=== PATIENT | male | born 1980 | race Caucasian/White ===

== ENCOUNTER 2018-01-11 04:09 | Emergency (ER) | payer MEDICAID ==
[2018-01-11] MEDS ORDERED: METAL LOCK LOOP XX (05:59)
== END 2018-01-11 06:20 | disposition home or self-care (01) ==
LOC: M ED 04:09
DX: K13.70 Unspecified lesions of oral mucosa (principal); J45.909 Unspecified asthma, uncomplicated; F17.200 Nicotine dependence, unspecified, uncomplicated; Z88.0 Allergy status to penicillin; Z79.51 Long term (current) use of inhaled steroids
CPT/HCPCS: 99282

== ENCOUNTER → 2018-12-03 | Outpatient (CLI) | payer MEDICAID ==
[~2018-12-03] MED LIST: ADV500INH INH; CLIN75REC PO; COMBAER6 INH; COUM1TAB18; IPRA0.00 NEB; MULTIVIT; PERC5TAB8; TGTSUS3 PO; XOPE0.632
--- NOTE | 2018-12-03 16:14 | REP ---
PA and lateral chest: Comparison is 07/13/2015. There is marked hyperinflation, unchanged. There is a new focal density inferiorly in the left lung adjacent to the cardiac apex. This could represent an infiltrate or a mass. Follow-up to complete resolution is recommended. The lung lau otherwise clear. Cardiac size normal. The itzel, mediastinum, skeletal structures are unchanged. Impression: New focal density inferiorly in the left lung, infiltrate versus mass. Follow-up to complete resolution is recommended. Electronically Signed by Vinod Montoya MD 12/03/2018 04:06 P
== END ==
LOC: M RAD 15:53
PROVIDERS: ATTEND Physician Assistant Medical
DX: J20.9 Acute bronchitis, unspecified (principal)

== ENCOUNTER → 2020-10-28 | Outpatient (CLI) | payer MEDICAID ==
[~2020-10-28] MED LIST changes: +ACET-1439 PO; -TGTSUS3 PO
--- NOTE | 2020-10-28 13:49 | REP ---
INDICATION: ACUTE BRONCHITIS, UNSPECIFIED COMPARISON: 12/03/2018 TECHNIQUE: PA and lateral. FINDINGS: The mediastinum and cardiac silhouette are normal. The lung lau demonstrate chronic emphysematous changes without acute consolidation, effusion, or pneumothorax. The skeletal structures are intact and normal. IMPRESSION: No acute cardiopulmonary process. <Electronically signed by [place] Mustafa > 10/28/20 [id number]
== END ==
LOC: M RAD 13:24
PROVIDERS: ATTEND Physician Assistant Medical
DX: J20.9 Acute bronchitis, unspecified (principal); J44.0 Chronic obstructive pulmonary disease with (acute) lower respiratory infection

== ENCOUNTER → 2022-11-04 | Outpatient (CLI) | payer MEDICAID ==
[2022-11-04 10:57] LABS: ABG BASE EXCESS 1.4 (-2.0-2.0); ABG HCO3 28.2 MMOL/L (22.0-26.0); ABG O2 SATURATION 98.5 % (95.0-99.0); ABG PARTIAL PRESSURE CO2 52.8 mmHg (35.0-45.0); ABG PARTIAL PRESSURE O2 135.6 mmHg (75.0-100.0); ABG STANDARD HCO3 25.8 MMOL/L. (22.0-26.0); ABG TOTAL CO2 29.8 MMOL/L (22.0-29.0); ABG pH (ARTERIAL) 7.345 UNITS (7.350-7.450)
== END ==
LOC: M CARPUL 10:20
PROVIDERS: ATTEND Nurse Practitioner Adult Health
DX: J44.9 Chronic obstructive pulmonary disease, unspecified (principal)

== ENCOUNTER → 2023-04-10 | Outpatient (CLI) | payer MEDICAID | LOC: M WUC 12:59 | PROVIDERS: ATTEND Nurse Practitioner Adult Health | DX: J18.0 Bronchopneumonia, unspecified organism (principal); I51.7 Cardiomegaly; I70.0 Atherosclerosis of aorta; J98.4 Other disorders of lung ==

== ENCOUNTER → 2023-05-09 | Outpatient (CLI) | payer MEDICAID ==
[2023-05-09 10:23] LABS: ABG BASE EXCESS 12.4 (-2.0-2.0); ABG HCO3 41.7 MMOL/L (22.0-26.0); ABG O2 SATURATION 97.6 % (95.0-99.0); ABG PARTIAL PRESSURE O2 98.3 mmHg (75.0-100.0); ABG SITE NOT GIVEN; ABG STANDARD HCO3 36.2 MMOL/L. (22.0-26.0); ABG TOTAL CO2 44.2 MMOL/L (22.0-29.0); ABG pH (ARTERIAL) 7.332 UNITS (7.350-7.450)
[2023-05-09 10:24] LABS: ABG PARTIAL PRESSURE CO2 80.6 mmHg (35.0-45.0)
== END ==
LOC: M LAB 09:47
PROVIDERS: ATTEND Nurse Practitioner
DX: J44.9 Chronic obstructive pulmonary disease, unspecified (principal)

== ENCOUNTER 2024-02-12 06:22 | Inpatient (IN) | payer MEDICAID, OTHER ==
[~2024-02-12] VITALS: Ht 172.7 cm; Wt 47.5 kg
[2024-02-12 07:01] LABS: BASO % 0.2 % (0.0-1.0); EOS # 0.1 10^3/uL (0.0-0.5); HEMATOCRIT 41.1 % (42.0-52.0); HEMOGLOBIN 11.9 g/dl (13.5-17.5); LYMPH # 0.5 10^3/uL (1.5-5.0); LYMPH % 5.1 % (24.0-44.0); MEAN CORPUSCULAR HEMOGLOBIN 27.9 pg (27.0-33.0); MEAN CORPUSCULAR VOLUME 96.3 fl (80.0-96.0); MONO # 0.7 10^3/uL (0.0-0.8); MONO % 6.3 % (2.0-8.0); NEUTROPHILS # 9.1 10^3/uL (1.5-8.5); NEUTROPHILS % 87.1 % (36.0-66.0); PLATELET COUNT, AUTOMATED 171 10^3/uL (150-450); RED BLOOD COUNT 4.27 10^6/uL (4.30-6.10); WHITE BLOOD COUNT 10.4 10^3/uL (4.0-10.0)
[2024-02-12 07:05] LABS: ABG BASE EXCESS 16.1 (-2.0-2.0); ABG HCO3 47.7 MMOL/L (22.0-26.0); ABG PARTIAL PRESSURE O2 100.4 mmHg (75.0-100.0); ABG STANDARD HCO3 40.1 MMOL/L. (22.0-26.0); ABG TOTAL CO2 50.9 MMOL/L (22.0-29.0); ABG pH (ARTERIAL) 7.279 UNITS (7.350-7.450)
[2024-02-12 07:25] LABS: CK-MB VALUE MASS 6.6 NG/ML (<3.6)
[2024-02-12 07:30] LABS: ALBUMIN 3.3 G/DL (3.2-5.2); ALKALINE PHOSPHATASE 93 U/L (40-129); ALT/SGPT 15 U/L (7.0-40); AST/SGOT 11 U/L (<34); BILIRUBIN,DIRECT < 0.1 MG/DL (<0.4); BILIRUBIN,TOTAL 0.3 MG/DL (0.3-1.2); BLOOD UREA NITROGEN 14 MG/DL (9-23); CALCIUM LEVEL 9.8 MG/DL (8.5-10.1); CARBON DIOXIDE LEVEL > 40.0 MMOL/L (20-31); CHLORIDE LEVEL 91 MMOL/L (98-107); CPK CREATINE PHOSPHOKINASE 80 U/L (46-171); CREATININE FOR GFR 0.56 MG/DL (0.70-1.30); GLOMERULAR FILTRATION RATE > 60.0 (>60); GLUCOSE, FASTING 94 MG/DL (60-100); MB/CK RELATIVE INDEX 8.25 (< OR =4); POTASSIUM SERUM 5.1 MMOL/L (3.5-5.1); SODIUM LEVEL 138 MMOL/L (136-145)
[2024-02-12 08:09] LABS: CK-MB VALUE MASS 7.8 NG/ML (<3.6)
[2024-02-12] MEDS: IPRATROPIUM 0.5MG/ALBUTEROL 2.5MG INH SOL UD 3ML (DUONEB) NEB SCH ×3 (08:09→20:05)
[2024-02-12 08:14] LABS: CPK CREATINE PHOSPHOKINASE 73 U/L (46-171); MB/CK RELATIVE INDEX 10.68 (< OR =4)
[2024-02-12] MEDS: methylPREDNISolone 125MG 2ML VIAL IV ONE (08:45)
[2024-02-12] MEDS: LevoFLOXacin IV 750 MG in IV 1 EA IV ONE (08:45)
[2024-02-12] MEDS: FLUoxetine 20MG CAP PO ONE (08:52)
[2024-02-12] MEDS: busPIRone 10 MG TAB PO ONE (08:52)
[2024-02-12] MEDS: ENOXAPARIN 40MG/0.4ML SYRINGE (J1650 PER 10MG) SC SCH (09:00)
[2024-02-12] MEDS ORDERED: FLUT1BLS6 INH (09:51)
[2024-02-12] MEDS ORDERED: ALBU2.5V10 INH (09:51)
[2024-02-12] MEDS ORDERED: COMBAER6 INH (09:51)
[2024-02-12] MEDS ORDERED: IBUP-1022 PO (09:51)
[2024-02-12] MEDS ORDERED: BUSP10TA PO (09:51)
[2024-02-12] MEDS ORDERED: FLUO-96 PO (09:51)
[2024-02-12] MEDS ORDERED: HOME MED LIST COMPLETE! XX SCH (09:55)
[2024-02-12 10:22] LABS: ABG BASE EXCESS 18.1 (-2.0-2.0); ABG HCO3 48.4 MMOL/L (22.0-26.0); ABG O2 SATURATION 93.2 % (95.0-99.0); ABG PARTIAL PRESSURE O2 65.5 mmHg (75.0-100.0); ABG STANDARD HCO3 42.1 MMOL/L. (22.0-26.0); ABG TOTAL CO2 51.2 MMOL/L (22.0-29.0)
[2024-02-12 10:23] LABS: ABG PARTIAL PRESSURE CO2 91.8 mmHg (35.0-45.0)
[2024-02-12] MEDS: IPRATROPIUM 0.5MG/ALBUTEROL 2.5MG INH SOL UD 3ML (DUONEB) NEB ONE (11:22)
[2024-02-12] MEDS ORDERED: ISOVUE-370 76% 100ML VIAL As Ordered ONE (12:42)
[2024-02-12] MEDS: LR 1,000 ML IV ONE (13:00)
[2024-02-12 14:00] VITALS: BP 143/91; TEMP 98.1; O2SAT 91
[2024-02-12] MEDS: methylPREDNISolone 40MG 1ML VIAL IV ONE (15:08)
[2024-02-12] MEDS: cefTRIAXone SOD 2 GM in DEXTROSE 5% (D5W) ADV/MINI-BAG 50 ML IV SCH (15:09)
[2024-02-12 16:00] VITALS: BP 136/86; TEMP 97.9; O2SAT 93
[2024-02-12 16:07] VITALS: BP 132/83; TEMP 98; O2SAT 93
[2024-02-12 16:14] LABS: IMMUNOGLOBULIN A 299.4 MG/DL (40-350); IMMUNOGLOBULIN G 1316 MG/DL (650-1600)
[2024-02-12 16:21] LABS: PROCALCITONIN 0.06 ng/ml
[2024-02-12] MEDS: ALPRAZolam 0.25 MG TAB PO PRN (17:30)
[2024-02-12 19:34] VITALS: BP 150/82; TEMP 97.3; O2SAT 90
[2024-02-12] MEDS: FORMOTEROL FUMARATE 20 MCG/2 ML INHALATION SOLUTION (PERFOROMIST) INH SCH (20:05)
[2024-02-12] MEDS: BUDESONIDE 0.5 MG/2 ML INHALATION SUSPENSION NEB SCH (20:05)
[2024-02-12] MEDS: DOXYCYCLINE HYCLATE 100MG TABLET PO SCH (21:10)
[2024-02-12] MEDS: busPIRone 10 MG TAB PO SCH (21:10)
[2024-02-12 23:44] VITALS: BP 142/89; TEMP 97.3; O2SAT 88
[2024-02-13] VITALS (20 sets, daily range): BP systolic 85–148; BP diastolic 50–90; TEMP 97.6–99.1; O2SAT 87–99
[2024-02-13] MEDS ORDERED: VANCOMYCIN 1,000 MG/200 ML IV BAG *LOAD IV ONE (04:00)
[2024-02-13 04:20] LABS: HEMATOCRIT 40.1 % (42.0-52.0); HEMOGLOBIN 11.8 g/dl (13.5-17.5); MEAN CORPUSCULAR HEMOGLOBIN 27.5 pg (27.0-33.0); MEAN CORPUSCULAR HGB CONC 29.4 g/dl (32.0-36.5); MEAN CORPUSCULAR VOLUME 93.5 fl (80.0-96.0); PLATELET COUNT, AUTOMATED 205 10^3/uL (150-450); RED BLOOD COUNT 4.29 10^6/uL (4.30-6.10); WHITE BLOOD COUNT 8.2 10^3/uL (4.0-10.0)
[2024-02-13 04:53] LABS: BLOOD UREA NITROGEN 14 MG/DL (9-23); CARBON DIOXIDE LEVEL > 40.0 MMOL/L (20-31); CHLORIDE LEVEL 90 MMOL/L (98-107); CREATININE FOR GFR 0.44 MG/DL (0.70-1.30); GLOMERULAR FILTRATION RATE > 60.0 (>60); GLUCOSE, FASTING 96 MG/DL (60-100); POTASSIUM SERUM 4.7 MMOL/L (3.5-5.1); SODIUM LEVEL 137 MMOL/L (136-145)
[2024-02-13 05:13] LABS: ABG BASE EXCESS 20.5 (-2.0-2.0); ABG HCO3 53.3 MMOL/L (22.0-26.0); ABG O2 SATURATION 99.5 % (95.0-99.0); ABG PARTIAL PRESSURE O2 196.1 mmHg (75.0-100.0); ABG pH (ARTERIAL) 7.258 UNITS (7.350-7.450)
[2024-02-13] MEDS: LORazepam 2 MG/ML 1ML VIAL IV STA (05:37)
[2024-02-13] MEDS ORDERED: VANCOMYCIN/WATER FOR INJ 1,000 MG in IV 1 EA IV ONE (07:15)
[2024-02-13 07:28] LABS: ABG BASE EXCESS 17.3 (-2.0-2.0); ABG HCO3 50.9 MMOL/L (22.0-26.0); ABG O2 SATURATION 99.6 % (95.0-99.0); ABG PARTIAL PRESSURE O2 262.8 mmHg (75.0-100.0); ABG STANDARD HCO3 41.5 MMOL/L. (22.0-26.0)
[2024-02-13 07:31] LABS: ABG PARTIAL PRESSURE CO2 130.6 mmHg (35.0-45.0); ABG pH (ARTERIAL) 7.209 UNITS (7.350-7.450)
[2024-02-13] MEDS: methylPREDNISolone 40MG 1ML VIAL IV SCH (08:20)
[2024-02-13] MEDS: DOXYCYCLINE HYCLATE 100 MG in DEXTROSE 5% (D5W) MINI-BAG PLU 100 ML IV SCH (09:19)
[2024-02-13 09:51] LABS: ABG HCO3 52.2 MMOL/L (22.0-26.0); ABG O2 SATURATION 89.1 % (95.0-99.0); ABG PARTIAL PRESSURE O2 59.3 mmHg (75.0-100.0)
[2024-02-13 09:54] LABS: ABG pH (ARTERIAL) 7.244 UNITS (7.350-7.450)
[2024-02-13 09:55] LABS: ABG PARTIAL PRESSURE CO2 123.5 mmHg (35.0-45.0)
[2024-02-13] MEDS ORDERED: GLUCOSE 4 GM CHEW PO PRN (11:00)
[2024-02-13] MEDS ORDERED: GLUCAGON INJ 1MG VIAL SC PRN (11:00)
[2024-02-13] MEDS ORDERED: DEXTROSE 50% 50ML SYRINGE IV PRN (11:00)
[2024-02-13] MEDS: ceFAZolin SOD 2 GM in IV 1 EA IV SCH (12:55)
[2024-02-13] MEDS: PROLASTIN C IV SCH (13:41)
[2024-02-13] MEDS: ONDANSETRON 4MG 2ML VIAL IV PRN (13:45)
[2024-02-13] MEDS: dexmedeTOMidine 200 MCG in IV 1 EA IV SCH (14:10)
[2024-02-13 14:20] LABS: ABG BASE EXCESS 16.3 (-2.0-2.0); ABG HCO3 50.9 MMOL/L (22.0-26.0); ABG PARTIAL PRESSURE O2 74.1 mmHg (75.0-100.0); ABG STANDARD HCO3 40.2 MMOL/L. (22.0-26.0); ABG TOTAL CO2 55.3 MMOL/L (22.0-29.0)
[2024-02-13 14:23] LABS: ABG PARTIAL PRESSURE CO2 142.7 mmHg (35.0-45.0)
[2024-02-13] MEDS: BUDESONIDE 0.5 MG/2 ML INHALATION SUSPENSION NEB SCH (14:58)
[2024-02-13 18:18] LABS: ABG BASE EXCESS 16.7 (-2.0-2.0); ABG HCO3 50.4 MMOL/L (22.0-26.0); ABG O2 SATURATION 91.2 % (95.0-99.0); ABG PARTIAL PRESSURE O2 68.8 mmHg (75.0-100.0); ABG STANDARD HCO3 40.5 MMOL/L. (22.0-26.0); ABG TOTAL CO2 54.6 MMOL/L (22.0-29.0)
[2024-02-13 18:19] LABS: ABG PARTIAL PRESSURE CO2 136.6 mmHg (35.0-45.0); ABG pH (ARTERIAL) 7.185 UNITS (7.350-7.450)
[2024-02-13 23:45] LABS: ABG HCO3 49.5 MMOL/L (22.0-26.0); ABG O2 SATURATION 97.7 % (95.0-99.0); ABG PARTIAL PRESSURE O2 111.5 mmHg (75.0-100.0); ABG TOTAL CO2 53.3 MMOL/L (22.0-29.0)
[2024-02-13 23:46] LABS: ABG pH (ARTERIAL) 7.226 UNITS (7.350-7.450)
[2024-02-13 23:47] LABS: ABG PARTIAL PRESSURE CO2 122.1 mmHg (35.0-45.0)
[2024-02-14] VITALS (38 sets, daily range): BP systolic 92–125; BP diastolic 53–75; TEMP 98–99.7; O2SAT 84–100
[2024-02-14 04:32] LABS: HEMATOCRIT 38.2 % (42.0-52.0); HEMOGLOBIN 11.1 g/dl (13.5-17.5); LYMPH # 0.5 10^3/uL (1.5-5.0); LYMPH % 6.3 % (24.0-44.0); MEAN CORPUSCULAR HGB CONC 29.1 g/dl (32.0-36.5); MEAN CORPUSCULAR VOLUME 96.2 fl (80.0-96.0); MONO # 0.3 10^3/uL (0.0-0.8); MONO % 3.8 % (2.0-8.0); NEUTROPHILS # 6.6 10^3/uL (1.5-8.5); NEUTROPHILS % 89.6 % (36.0-66.0); PLATELET COUNT, AUTOMATED 188 10^3/uL (150-450); RED BLOOD COUNT 3.97 10^6/uL (4.30-6.10); WHITE BLOOD COUNT 7.4 10^3/uL (4.0-10.0)
[2024-02-14 04:58] LABS: CK-MB VALUE MASS 4.9 NG/ML (<3.6); MAGNESIUM LEVEL 2.3 MG/DL (1.8-2.4); MB/CK RELATIVE INDEX 7.2 (< OR =4); PHOSPHORUS LEVEL 4.6 MG/DL (2.5-4.9)
[2024-02-14 05:10] LABS: PROCALCITONIN 0.07 ng/ml
[2024-02-14 05:39] LABS: ABG pH (ARTERIAL) 7.277 UNITS (7.350-7.450)
[2024-02-14 05:41] LABS: ABG BASE EXCESS 19.4 (-2.0-2.0); ABG HCO3 51.1 MMOL/L (22.0-26.0); ABG PARTIAL PRESSURE O2 147.5 mmHg (75.0-100.0); ABG STANDARD HCO3 43.6 MMOL/L. (22.0-26.0); ABG TOTAL CO2 54.5 MMOL/L (22.0-29.0)
[2024-02-14] MEDS ORDERED: VANCOMYCIN HCL 750 MG, VIAL MATE ADAPTER 1 EACH in NS 250 ML IV SCH (07:55)
[2024-02-14] MEDS: methylPREDNISolone 40MG 1ML VIAL IV SCH (08:53)
[2024-02-14] MEDS: FLUoxetine 20MG CAP PO SCH (09:16)
[2024-02-14] MEDS: VANCOMYCIN 1,000 MG/200 ML IV BAG *LOAD IV ONE (10:11)
[2024-02-14] MEDS ORDERED: VANCOMYCIN 1,250 MG/250 ML IV BAG IV SCH (18:00)
[2024-02-14] MEDS: VANCOMYCIN HCL 750 MG, VIAL MATE ADAPTER 1 EACH in NS 250 ML IV SCH (18:38)
[2024-02-15] VITALS (33 sets, daily range): BP systolic 95–146; BP diastolic 53–90; TEMP 97.3–98.7; O2SAT 75–100
[2024-02-15 05:27] LABS: HEMATOCRIT 36.2 % (42.0-52.0); HEMOGLOBIN 10.5 g/dl (13.5-17.5); LYMPH # 0.6 10^3/uL (1.5-5.0); MEAN CORPUSCULAR HEMOGLOBIN 27.9 pg (27.0-33.0); MONO # 0.3 10^3/uL (0.0-0.8); MONO % 4.3 % (2.0-8.0); NEUTROPHILS # 6.9 10^3/uL (1.5-8.5); NEUTROPHILS % 87.6 % (36.0-66.0); PLATELET COUNT, AUTOMATED 163 10^3/uL (150-450); RED BLOOD COUNT 3.77 10^6/uL (4.30-6.10); WHITE BLOOD COUNT 7.9 10^3/uL (4.0-10.0)
[2024-02-15 05:47] LABS: ABG BASE EXCESS 18.5 (-2.0-2.0); ABG HCO3 48.3 MMOL/L (22.0-26.0); ABG O2 SATURATION 98.4 % (95.0-99.0); ABG PARTIAL PRESSURE O2 128.6 mmHg (75.0-100.0); ABG STANDARD HCO3 42.6 MMOL/L. (22.0-26.0); ABG TOTAL CO2 51.1 MMOL/L (22.0-29.0); ABG pH (ARTERIAL) 7.339 UNITS (7.350-7.450)
[2024-02-15 05:48] LABS: ABG PARTIAL PRESSURE CO2 91.8 mmHg (35.0-45.0)
[2024-02-15 06:01] LABS: ALBUMIN 3.1 G/DL (3.2-5.2); ALKALINE PHOSPHATASE 69 U/L (40-129); ALT/SGPT 12 U/L (7.0-40); AST/SGOT 14 U/L (<34); BILIRUBIN,TOTAL 0.3 MG/DL (0.3-1.2); BLOOD UREA NITROGEN 26 MG/DL (9-23); CALCIUM LEVEL 9.5 MG/DL (8.5-10.1); CARBON DIOXIDE LEVEL > 40.0 MMOL/L (20-31); CHLORIDE LEVEL 89 MMOL/L (98-107); CREATININE FOR GFR 0.53 MG/DL (0.70-1.30); GLOMERULAR FILTRATION RATE > 60.0 (>60); GLUCOSE, FASTING 107 MG/DL (60-100); MAGNESIUM LEVEL 2.4 MG/DL (1.8-2.4); PHOSPHORUS LEVEL 3.7 MG/DL (2.5-4.9); POTASSIUM SERUM 5.2 MMOL/L (3.5-5.1); SODIUM LEVEL 137 MMOL/L (136-145); TOTAL PROTEIN 6.4 G/DL (5.7-8.2)
[2024-02-15] MEDS: SOD POLYSTYRENE SULFONATE SUSP 15GM 60ML UD PO ONE (06:35)
[2024-02-15] MEDS: GLYCOPYRROLATE INJ 0.2 MG/ML 2 ML VIAL NEB SCH (11:20)
[2024-02-15] MEDS: ALPRAZolam 0.25 MG TAB PO PRN (13:39)
[2024-02-15] MEDS: busPIRone 10 MG TAB PO SCH (14:53)
[2024-02-15 15:12] LABS: VENOUS BASE EXCESS 15.4 (-2.0-2.0); VENOUS HCO3 44.2 MMOL/L (23.0-27.0); VENOUS O2 SATURATION 99.2 % (60.0-80.0); VENOUS PARTIAL PRESSURE CO2 77.8 mmHg (38.0-50.0); VENOUS PARTIAL PRESSURE O2 162.3 mmHg (30.0-50.0); VENOUS PH 7.372 UNITS (7.330-7.430); VENOUS STANDARD HCO3 39.3 MMOL/L; VENOUS TOTAL CO2 46.6 MMOL/L (24.0-28.0)
[2024-02-15] MEDS: IPRATROPIUM 0.5MG/ALBUTEROL 2.5MG INH SOL UD 3ML (DUONEB) NEB SCH (15:14)
[2024-02-15 17:11] LABS: VENOUS BASE EXCESS 18.4 (-2.0-2.0); VENOUS HCO3 48.8 MMOL/L (23.0-27.0); VENOUS O2 SATURATION 98.9 % (60.0-80.0); VENOUS PARTIAL PRESSURE CO2 94.5 mmHg (38.0-50.0); VENOUS PARTIAL PRESSURE O2 156.6 mmHg (30.0-50.0); VENOUS PH 7.331 UNITS (7.330-7.430); VENOUS STANDARD HCO3 42.6 MMOL/L; VENOUS TOTAL CO2 51.7 MMOL/L (24.0-28.0)
[2024-02-15] MEDS: CALCIUM GLUCONATE 1,000 MG in DEXTROSE 5% (D5W) MINI-BAG PLU 100 ML IV ONE (17:57)
[2024-02-15 18:34] LABS: BLOOD UREA NITROGEN 24 MG/DL (9-23); CARBON DIOXIDE LEVEL > 40.0 MMOL/L (20-31); CHLORIDE LEVEL 91 MMOL/L (98-107); CREATININE FOR GFR 0.49 MG/DL (0.70-1.30); GLOMERULAR FILTRATION RATE > 60.0 (>60); GLUCOSE, FASTING 205 MG/DL (60-100); POTASSIUM SERUM 4.5 MMOL/L (3.5-5.1); SODIUM LEVEL 137 MMOL/L (136-145)
[2024-02-15] MEDS: VANCOMYCIN 1,000MG/200 ML IV BAG IV SCH (18:46)
[2024-02-16] VITALS (17 sets, daily range): BP systolic 105–147; BP diastolic 63–80; TEMP 97–99.6; O2SAT 87–99
[2024-02-16 00:31] LABS: VENOUS BASE EXCESS 16.7 (-2.0-2.0); VENOUS HCO3 48.5 MMOL/L (23.0-27.0); VENOUS O2 SATURATION 95.4 % (60.0-80.0); VENOUS PARTIAL PRESSURE CO2 111.6 mmHg (38.0-50.0); VENOUS PH 7.256 UNITS (7.330-7.430); VENOUS STANDARD HCO3 40.6 MMOL/L; VENOUS TOTAL CO2 51.9 MMOL/L (24.0-28.0)
[2024-02-16 05:32] LABS: VENOUS HCO3 46.6 MMOL/L (23.0-27.0); VENOUS O2 SATURATION 79.3 % (60.0-80.0); VENOUS PARTIAL PRESSURE CO2 109.3 mmHg (38.0-50.0); VENOUS PARTIAL PRESSURE O2 48.3 mmHg (30.0-50.0); VENOUS PH 7.248 UNITS (7.330-7.430); VENOUS STANDARD HCO3 38.4 MMOL/L
[2024-02-16] MEDS: FLUoxetine 20MG CAP PO SCH (06:05)
[2024-02-16 06:13] LABS: BLOOD UREA NITROGEN 22 MG/DL (9-23); CALCIUM LEVEL 9.1 MG/DL (8.5-10.1); CARBON DIOXIDE LEVEL > 40.0 MMOL/L (20-31); CHLORIDE LEVEL 93 MMOL/L (98-107); CREATININE FOR GFR 0.57 MG/DL (0.70-1.30); GLOMERULAR FILTRATION RATE > 60.0 (>60); GLUCOSE, FASTING 139 MG/DL (60-100); PHOSPHORUS LEVEL 3.6 MG/DL (2.5-4.9); POTASSIUM SERUM 4.8 MMOL/L (3.5-5.1); SODIUM LEVEL 139 MMOL/L (136-145)
[2024-02-16] MEDS: ceFAZolin SOD 2 GM in IV 1 EA IV SCH (12:51)
[2024-02-16 18:07] LABS: FUNGITELL INTERPRETATION NEGATIVE (NEGATIVE); FUNGITELL, SERUM < 31 pg/mL (<60)
[2024-02-16] MEDS: DOXYCYCLINE HYCLATE 100MG TABLET PO SCH (20:41)
[2024-02-16] MEDS: ALPRAZolam 0.25 MG TAB PO PRN (22:29)
[2024-02-17] VITALS (11 sets, daily range): BP systolic 137–165; BP diastolic 77–97; TEMP 98.3–99.8; O2SAT 92–97
[2024-02-17 05:10] LABS: BLOOD UREA NITROGEN 16 MG/DL (9-23); CARBON DIOXIDE LEVEL > 40.0 MMOL/L (20-31); CHLORIDE LEVEL 93 MMOL/L (98-107); GLOMERULAR FILTRATION RATE > 60.0 (>60); GLUCOSE, FASTING 109 MG/DL (60-100); PHOSPHORUS LEVEL 4.1 MG/DL (2.5-4.9); SODIUM LEVEL 139 MMOL/L (136-145)
[2024-02-17 06:06] LABS: ABG BASE EXCESS 18.5 (-2.0-2.0); ABG HCO3 49.4 MMOL/L (22.0-26.0); ABG O2 SATURATION 97.4 % (95.0-99.0); ABG PARTIAL PRESSURE O2 103.8 mmHg (75.0-100.0); ABG STANDARD HCO3 42.7 MMOL/L. (22.0-26.0); ABG TOTAL CO2 52.4 MMOL/L (22.0-29.0); ABG pH (ARTERIAL) 7.309 UNITS (7.350-7.450)
[2024-02-17 06:10] LABS: ABG PARTIAL PRESSURE CO2 100.5 mmHg (35.0-45.0)
[2024-02-18] VITALS (16 sets, daily range): BP systolic 125–169; BP diastolic 79–93; TEMP 98.1–98.9; O2SAT 89–96
[2024-02-18 05:03] LABS: BLOOD UREA NITROGEN 16 MG/DL (9-23); CALCIUM LEVEL 9.8 MG/DL (8.5-10.1); CARBON DIOXIDE LEVEL > 40.0 MMOL/L (20-31); CHLORIDE LEVEL 92 MMOL/L (98-107); CREATININE FOR GFR 0.49 MG/DL (0.70-1.30); GLOMERULAR FILTRATION RATE > 60.0 (>60); GLUCOSE, FASTING 94 MG/DL (60-100); PHOSPHORUS LEVEL 3.7 MG/DL (2.5-4.9); POTASSIUM SERUM 4.7 MMOL/L (3.5-5.1); SODIUM LEVEL 139 MMOL/L (136-145)
[2024-02-18] MEDS: methylPREDNISolone 40MG 1ML VIAL IV SCH (08:59)
[2024-02-18 13:06] LABS: C REACTIVE PROTEIN QUANTITATIV < 0.50 MG/DL (<1.0)
[2024-02-19] VITALS (46 sets, daily range): BP systolic 135–163; BP diastolic 78–91; TEMP 98–99.4; O2SAT 56–100
[2024-02-19] MEDS: IPRATROPIUM 0.5MG/ALBUTEROL 2.5MG INH SOL UD 3ML (DUONEB) NEB PRN (05:46)
[2024-02-19 07:45] LABS: EOS # 0.3 10^3/uL (0.0-0.5); EOS % 3.1 % (0.0-3.0); HEMATOCRIT 39.8 % (42.0-52.0); HEMOGLOBIN 11.7 g/dl (13.5-17.5); LYMPH # 1.1 10^3/uL (1.5-5.0); MEAN CORPUSCULAR HEMOGLOBIN 27.5 pg (27.0-33.0); MEAN CORPUSCULAR HGB CONC 29.4 g/dl (32.0-36.5); MEAN CORPUSCULAR VOLUME 93.6 fl (80.0-96.0); MONO # 0.7 10^3/uL (0.0-0.8); MONO % 7.3 % (2.0-8.0); NEUTROPHILS % 78.1 % (36.0-66.0); PLATELET COUNT, AUTOMATED 210 10^3/uL (150-450); RED BLOOD COUNT 4.25 10^6/uL (4.30-6.10); WHITE BLOOD COUNT 10.2 10^3/uL (4.0-10.0)
[2024-02-19 08:20] LABS: BLOOD UREA NITROGEN 15 MG/DL (9-23); CALCIUM LEVEL 9.9 MG/DL (8.5-10.1); CARBON DIOXIDE LEVEL > 40.0 MMOL/L (20-31); CHLORIDE LEVEL 92 MMOL/L (98-107); CREATININE FOR GFR 0.43 MG/DL (0.70-1.30); GLOMERULAR FILTRATION RATE > 60.0 (>60); GLUCOSE, FASTING 96 MG/DL (60-100); MAGNESIUM LEVEL 2.2 MG/DL (1.8-2.4); POTASSIUM SERUM 5.1 MMOL/L (3.5-5.1); SODIUM LEVEL 138 MMOL/L (136-145)
[2024-02-19] MEDS: predniSONE 20 MG TAB PO SCH (09:46)
[2024-02-19] MEDS: valACYclovir HCL 500 MG TAB PO SCH (23:29)
[2024-02-20] VITALS (35 sets, daily range): BP systolic 115–149; BP diastolic 65–82; TEMP 98.2–100.2; O2SAT 83–98
[2024-02-20 06:20] LABS: BASO % 0.2 % (0.0-1.0); EOS # 0.2 10^3/uL (0.0-0.5); EOS % 1.4 % (0.0-3.0); HEMATOCRIT 42.5 % (42.0-52.0); HEMOGLOBIN 12.3 g/dl (13.5-17.5); LYMPH # 1.2 10^3/uL (1.5-5.0); LYMPH % 11.1 % (24.0-44.0); MEAN CORPUSCULAR HEMOGLOBIN 28.1 pg (27.0-33.0); MEAN CORPUSCULAR HGB CONC 28.9 g/dl (32.0-36.5); MONO # 0.8 10^3/uL (0.0-0.8); MONO % 7.6 % (2.0-8.0); NEUTROPHILS # 8.7 10^3/uL (1.5-8.5); NEUTROPHILS % 77.9 % (36.0-66.0); PLATELET COUNT, AUTOMATED 195 10^3/uL (150-450); RED BLOOD COUNT 4.38 10^6/uL (4.30-6.10); WHITE BLOOD COUNT 11.1 10^3/uL (4.0-10.0)
[2024-02-20 07:13] LABS: BLOOD UREA NITROGEN 17 MG/DL (9-23); CALCIUM LEVEL 9.5 MG/DL (8.5-10.1); CARBON DIOXIDE LEVEL > 40.0 MMOL/L (20-31); CHLORIDE LEVEL 93 MMOL/L (98-107); CREATININE FOR GFR 0.41 MG/DL (0.70-1.30); GLOMERULAR FILTRATION RATE > 60.0 (>60); GLUCOSE, FASTING 115 MG/DL (60-100); MAGNESIUM LEVEL 2.3 MG/DL (1.8-2.4); POTASSIUM SERUM 6.1 MMOL/L (3.5-5.1); SODIUM LEVEL 139 MMOL/L (136-145)
[2024-02-20 08:10] LABS: ABG BASE EXCESS 15.7 (-2.0-2.0); ABG HCO3 48.7 MMOL/L (22.0-26.0); ABG O2 SATURATION 89.9 % (95.0-99.0); ABG STANDARD HCO3 39.5 MMOL/L. (22.0-26.0); ABG TOTAL CO2 52.5 MMOL/L (22.0-29.0)
[2024-02-20 08:11] LABS: ABG PARTIAL PRESSURE CO2 122.3 mmHg (35.0-45.0); ABG pH (ARTERIAL) 7.218 UNITS (7.350-7.450)
[2024-02-20 09:10] LABS: ABG BASE EXCESS 17.8 (-2.0-2.0); ABG HCO3 48.6 MMOL/L (22.0-26.0); ABG O2 SATURATION 93.2 % (95.0-99.0); ABG PARTIAL PRESSURE O2 65.9 mmHg (75.0-100.0); ABG STANDARD HCO3 41.8 MMOL/L. (22.0-26.0); ABG TOTAL CO2 51.6 MMOL/L (22.0-29.0); ABG pH (ARTERIAL) 7.318 UNITS (7.350-7.450)
[2024-02-20] MEDS ORDERED: MAGIC MOUTHWASH 5ML ORAL SYRINGE SS PRN (10:45)
[2024-02-20] MEDS: CHLORASEPTIC SPRAY MT PRN (13:07)
[2024-02-21] VITALS (31 sets, daily range): BP systolic 126–151; BP diastolic 73–85; TEMP 98–98.8; O2SAT 91–96
[2024-02-21 06:48] LABS: BASO % 0.1 % (0.0-1.0); EOS # 0.2 10^3/uL (0.0-0.5); HEMATOCRIT 38.4 % (42.0-52.0); HEMOGLOBIN 11.1 g/dl (13.5-17.5); LYMPH # 1.3 10^3/uL (1.5-5.0); LYMPH % 12.8 % (24.0-44.0); MEAN CORPUSCULAR HEMOGLOBIN 27.7 pg (27.0-33.0); MEAN CORPUSCULAR HGB CONC 28.9 g/dl (32.0-36.5); MEAN CORPUSCULAR VOLUME 95.8 fl (80.0-96.0); MONO # 0.7 10^3/uL (0.0-0.8); MONO % 6.6 % (2.0-8.0); NEUTROPHILS % 77.9 % (36.0-66.0); PLATELET COUNT, AUTOMATED 190 10^3/uL (150-450); RED BLOOD COUNT 4.01 10^6/uL (4.30-6.10); WHITE BLOOD COUNT 10.2 10^3/uL (4.0-10.0)
[2024-02-21 07:20] LABS: BLOOD UREA NITROGEN 18 MG/DL (9-23); CALCIUM LEVEL 9.4 MG/DL (8.5-10.1); CARBON DIOXIDE LEVEL > 40.0 MMOL/L (20-31); CHLORIDE LEVEL 92 MMOL/L (98-107); CREATININE FOR GFR 0.48 MG/DL (0.70-1.30); GLOMERULAR FILTRATION RATE > 60.0 (>60); GLUCOSE, FASTING 98 MG/DL (60-100); MAGNESIUM LEVEL 2.2 MG/DL (1.8-2.4); POTASSIUM SERUM 4.9 MMOL/L (3.5-5.1); SODIUM LEVEL 138 MMOL/L (136-145)
[2024-02-22] VITALS (30 sets, daily range): BP systolic 125–154; BP diastolic 74–86; TEMP 97.9–98.6; O2SAT 83–97
[2024-02-22 05:57] LABS: BASO % 0.1 % (0.0-1.0); EOS # 0.3 10^3/uL (0.0-0.5); EOS % 2.9 % (0.0-3.0); HEMATOCRIT 37.5 % (42.0-52.0); HEMOGLOBIN 10.7 g/dl (13.5-17.5); LYMPH # 1.1 10^3/uL (1.5-5.0); LYMPH % 12.1 % (24.0-44.0); MEAN CORPUSCULAR HEMOGLOBIN 27.3 pg (27.0-33.0); MEAN CORPUSCULAR HGB CONC 28.5 g/dl (32.0-36.5); MEAN CORPUSCULAR VOLUME 95.7 fl (80.0-96.0); MONO # 0.6 10^3/uL (0.0-0.8); MONO % 6.5 % (2.0-8.0); NEUTROPHILS # 7.1 10^3/uL (1.5-8.5); PLATELET COUNT, AUTOMATED 188 10^3/uL (150-450); RED BLOOD COUNT 3.92 10^6/uL (4.30-6.10); WHITE BLOOD COUNT 9.1 10^3/uL (4.0-10.0)
[2024-02-22 06:37] LABS: BLOOD UREA NITROGEN 15 MG/DL (9-23); CALCIUM LEVEL 9.9 MG/DL (8.5-10.1); CARBON DIOXIDE LEVEL > 40.0 MMOL/L (20-31); CHLORIDE LEVEL 87 MMOL/L (98-107); CREATININE FOR GFR 0.45 MG/DL (0.70-1.30); GLOMERULAR FILTRATION RATE > 60.0 (>60); GLUCOSE, FASTING 84 MG/DL (60-100); MAGNESIUM LEVEL 2.3 MG/DL (1.8-2.4); POTASSIUM SERUM 4.7 MMOL/L (3.5-5.1); SODIUM LEVEL 136 MMOL/L (136-145)
[2024-02-22 08:24] LABS: ABG BASE EXCESS 17.2 (-2.0-2.0); ABG HCO3 51.1 MMOL/L (22.0-26.0); ABG O2 SATURATION 94.1 % (95.0-99.0); ABG PARTIAL PRESSURE O2 80.4 mmHg (75.0-100.0); ABG STANDARD HCO3 41.2 MMOL/L. (22.0-26.0); ABG TOTAL CO2 55.3 MMOL/L (22.0-29.0)
[2024-02-22 08:26] LABS: ABG PARTIAL PRESSURE CO2 137.7 mmHg (35.0-45.0); ABG pH (ARTERIAL) 7.187 UNITS (7.350-7.450)
[2024-02-22] MEDS: predniSONE 10MG TAB PO SCH (09:28)
[2024-02-22 10:47] LABS: ABG BASE EXCESS 15.8 (-2.0-2.0); ABG HCO3 48.8 MMOL/L (22.0-26.0); ABG O2 SATURATION 91.3 % (95.0-99.0); ABG PARTIAL PRESSURE O2 66.9 mmHg (75.0-100.0); ABG STANDARD HCO3 39.6 MMOL/L. (22.0-26.0); ABG TOTAL CO2 52.6 MMOL/L (22.0-29.0)
[2024-02-22 10:51] LABS: ABG PARTIAL PRESSURE CO2 124.8 mmHg (35.0-45.0)
[2024-02-23] VITALS (31 sets, daily range): BP systolic 136–143; BP diastolic 76–89; TEMP 97.6–99.2; O2SAT 84–98
[2024-02-23 07:35] LABS: BASO % 0.1 % (0.0-1.0); EOS # 0.2 10^3/uL (0.0-0.5); EOS % 1.9 % (0.0-3.0); HEMATOCRIT 37.9 % (42.0-52.0); HEMOGLOBIN 10.9 g/dl (13.5-17.5); LYMPH % 12.2 % (24.0-44.0); MEAN CORPUSCULAR HEMOGLOBIN 27.7 pg (27.0-33.0); MEAN CORPUSCULAR HGB CONC 28.8 g/dl (32.0-36.5); MEAN CORPUSCULAR VOLUME 96.2 fl (80.0-96.0); MONO # 0.5 10^3/uL (0.0-0.8); MONO % 6.1 % (2.0-8.0); NEUTROPHILS # 6.2 10^3/uL (1.5-8.5); NEUTROPHILS % 79.2 % (36.0-66.0); PLATELET COUNT, AUTOMATED 188 10^3/uL (150-450); RED BLOOD COUNT 3.94 10^6/uL (4.30-6.10); WHITE BLOOD COUNT 7.8 10^3/uL (4.0-10.0)
[2024-02-23 07:53] LABS: BLOOD UREA NITROGEN 15 MG/DL (9-23); CALCIUM LEVEL 9.4 MG/DL (8.5-10.1); CARBON DIOXIDE LEVEL > 40.0 MMOL/L (20-31); CHLORIDE LEVEL 87 MMOL/L (98-107); CREATININE FOR GFR 0.44 MG/DL (0.70-1.30); GLOMERULAR FILTRATION RATE > 60.0 (>60); GLUCOSE, FASTING 143 MG/DL (60-100); MAGNESIUM LEVEL 2.3 MG/DL (1.8-2.4); POTASSIUM SERUM 4.6 MMOL/L (3.5-5.1); SODIUM LEVEL 138 MMOL/L (136-145)
[2024-02-23 19:47] LABS: URINE STREP PNEUMONIAE ANTIGEN NOT DETECTED (NOT DETECT)
[2024-02-24] VITALS (29 sets, daily range): BP systolic 122–153; BP diastolic 64–84; TEMP 97.4–98.8; O2SAT 90–98
[2024-02-24 06:58] LABS: BASO % 0.1 % (0.0-1.0); EOS # 0.3 10^3/uL (0.0-0.5); EOS % 3.3 % (0.0-3.0); HEMATOCRIT 38.3 % (42.0-52.0); HEMOGLOBIN 11.1 g/dl (13.5-17.5); LYMPH # 1.5 10^3/uL (1.5-5.0); LYMPH % 15.5 % (24.0-44.0); MEAN CORPUSCULAR HEMOGLOBIN 27.3 pg (27.0-33.0); MEAN CORPUSCULAR VOLUME 94.3 fl (80.0-96.0); MONO # 0.6 10^3/uL (0.0-0.8); MONO % 6.2 % (2.0-8.0); NEUTROPHILS # 7.1 10^3/uL (1.5-8.5); NEUTROPHILS % 74.4 % (36.0-66.0); PLATELET COUNT, AUTOMATED 213 10^3/uL (150-450); RED BLOOD COUNT 4.06 10^6/uL (4.30-6.10); WHITE BLOOD COUNT 9.5 10^3/uL (4.0-10.0)
[2024-02-24 07:36] LABS: BLOOD UREA NITROGEN 15 MG/DL (9-23); CALCIUM LEVEL 9.4 MG/DL (8.5-10.1); CARBON DIOXIDE LEVEL > 40.0 MMOL/L (20-31); CHLORIDE LEVEL 90 MMOL/L (98-107); CREATININE FOR GFR 0.45 MG/DL (0.70-1.30); GLOMERULAR FILTRATION RATE > 60.0 (>60); GLUCOSE, FASTING 84 MG/DL (60-100); MAGNESIUM LEVEL 2.3 MG/DL (1.8-2.4); POTASSIUM SERUM 4.8 MMOL/L (3.5-5.1); SODIUM LEVEL 138 MMOL/L (136-145)
[2024-02-25] VITALS (30 sets, daily range): BP systolic 127–139; BP diastolic 75–83; TEMP 98–98.1; O2SAT 92–98
[2024-02-25 07:08] LABS: BASO % 0.3 % (0.0-1.0); EOS # 0.3 10^3/uL (0.0-0.5); EOS % 2.6 % (0.0-3.0); HEMATOCRIT 37.7 % (42.0-52.0); HEMOGLOBIN 10.9 g/dl (13.5-17.5); LYMPH # 1.3 10^3/uL (1.5-5.0); LYMPH % 13.2 % (24.0-44.0); MEAN CORPUSCULAR HEMOGLOBIN 27.5 pg (27.0-33.0); MEAN CORPUSCULAR HGB CONC 28.9 g/dl (32.0-36.5); MONO # 0.6 10^3/uL (0.0-0.8); MONO % 6.3 % (2.0-8.0); NEUTROPHILS # 7.6 10^3/uL (1.5-8.5); NEUTROPHILS % 77.3 % (36.0-66.0); PLATELET COUNT, AUTOMATED 205 10^3/uL (150-450); RED BLOOD COUNT 3.97 10^6/uL (4.30-6.10); WHITE BLOOD COUNT 9.8 10^3/uL (4.0-10.0)
[2024-02-25 07:45] LABS: BLOOD UREA NITROGEN 12 MG/DL (9-23); CALCIUM LEVEL 9.3 MG/DL (8.5-10.1); CARBON DIOXIDE LEVEL > 40.0 MMOL/L (20-31); CHLORIDE LEVEL 93 MMOL/L (98-107); GLOMERULAR FILTRATION RATE > 60.0 (>60); GLUCOSE, FASTING 87 MG/DL (60-100); MAGNESIUM LEVEL 2.2 MG/DL (1.8-2.4); POTASSIUM SERUM 4.6 MMOL/L (3.5-5.1); SODIUM LEVEL 141 MMOL/L (136-145)
[2024-02-26] VITALS (30 sets, daily range): BP systolic 134–156; BP diastolic 78–89; TEMP 97.9–98.3; O2SAT 88–98
[2024-02-26 08:50] LABS: ABG HCO3 43.8 MMOL/L (22.0-26.0); ABG O2 SATURATION 95.3 % (95.0-99.0); ABG STANDARD HCO3 37.8 MMOL/L. (22.0-26.0); ABG TOTAL CO2 46.6 MMOL/L (22.0-29.0); ABG pH (ARTERIAL) 7.307 UNITS (7.350-7.450)
[2024-02-26 08:52] LABS: ABG PARTIAL PRESSURE CO2 89.7 mmHg (35.0-45.0)
[2024-02-27] VITALS (26 sets, daily range): BP systolic 134–146; BP diastolic 73–84; TEMP 97.7–98.5; O2SAT 75–97
[2024-02-27 08:28] LABS: BASO % 0.1 % (0.0-1.0); EOS # 0.3 10^3/uL (0.0-0.5); EOS % 3.1 % (0.0-3.0); HEMATOCRIT 36.7 % (42.0-52.0); HEMOGLOBIN 10.7 g/dl (13.5-17.5); LYMPH # 0.9 10^3/uL (1.5-5.0); LYMPH % 11.1 % (24.0-44.0); MEAN CORPUSCULAR HGB CONC 29.2 g/dl (32.0-36.5); MEAN CORPUSCULAR VOLUME 96.1 fl (80.0-96.0); MONO # 0.5 10^3/uL (0.0-0.8); MONO % 5.9 % (2.0-8.0); NEUTROPHILS # 6.5 10^3/uL (1.5-8.5); NEUTROPHILS % 79.4 % (36.0-66.0); PLATELET COUNT, AUTOMATED 171 10^3/uL (150-450); RED BLOOD COUNT 3.82 10^6/uL (4.30-6.10); WHITE BLOOD COUNT 8.2 10^3/uL (4.0-10.0)
[2024-02-27 08:57] LABS: BLOOD UREA NITROGEN 11 MG/DL (9-23); CALCIUM LEVEL 9.3 MG/DL (8.5-10.1); CARBON DIOXIDE LEVEL > 40.0 MMOL/L (20-31); CHLORIDE LEVEL 90 MMOL/L (98-107); CREATININE FOR GFR 0.43 MG/DL (0.70-1.30); GLOMERULAR FILTRATION RATE > 60.0 (>60); GLUCOSE, FASTING 89 MG/DL (60-100); POTASSIUM SERUM 4.6 MMOL/L (3.5-5.1); SODIUM LEVEL 139 MMOL/L (136-145)
[2024-02-27 14:50] LABS: C REACTIVE PROTEIN QUANTITATIV < 0.50 MG/DL (<1.0)
[2024-02-27] MEDS: PROLASTIN C IV SCH (14:54)
[2024-02-27] MEDS: busPIRone 5 MG TAB PO ONE (23:57)
[2024-02-28] VITALS (35 sets, daily range): BP systolic 103–147; BP diastolic 63–81; TEMP 97.1–98.1; O2SAT 82–99
[2024-02-28 09:40] LABS: ABG HCO3 51.8 MMOL/L (22.0-26.0); ABG O2 SATURATION 98.4 % (95.0-99.0); ABG PARTIAL PRESSURE O2 114.5 mmHg (75.0-100.0); ABG STANDARD HCO3 43.2 MMOL/L. (22.0-26.0); ABG TOTAL CO2 55.6 MMOL/L (22.0-29.0)
[2024-02-28 09:51] LABS: ABG pH (ARTERIAL) 7.241 UNITS (7.350-7.450)
[2024-02-28 09:52] LABS: ABG PARTIAL PRESSURE CO2 123.4 mmHg (35.0-45.0)
[2024-02-29] VITALS (39 sets, daily range): BP systolic 129–142; BP diastolic 64–89; TEMP 97.3–98.3; O2SAT 83–97
[2024-02-29 09:11] LABS: ABG HCO3 54.1 MMOL/L (22.0-26.0); ABG O2 SATURATION 93.4 % (95.0-99.0); ABG PARTIAL PRESSURE O2 66.8 mmHg (75.0-100.0); ABG STANDARD HCO3 47.6 MMOL/L. (22.0-26.0); ABG TOTAL CO2 57.3 MMOL/L (22.0-29.0); ABG pH (ARTERIAL) 7.338 UNITS (7.350-7.450)
[2024-02-29 09:14] LABS: ABG PARTIAL PRESSURE CO2 103.1 mmHg (35.0-45.0)
[2024-03-01] VITALS (35 sets, daily range): BP systolic 128–146; BP diastolic 71–88; TEMP 97.2–99; O2SAT 86–99
[2024-03-01] MEDS: busPIRone 10 MG TAB PO SCH (09:00)
[2024-03-01] MEDS: ALPRAZolam 0.5 MG TAB PO PRN (10:38)
[2024-03-02] VITALS (35 sets, daily range): BP systolic 134–149; BP diastolic 75–89; TEMP 98.2–99.1; O2SAT 80–97
[2024-03-02] MEDS ORDERED: ALPRAZolam 0.5 MG TAB PO PRN (11:10)
[2024-03-02] MEDS: ALPRAZolam 0.5 MG TAB PO PRN (22:36)
[2024-03-03] VITALS (29 sets, daily range): BP systolic 124–137; BP diastolic 73–81; TEMP 98.2–98.9; O2SAT 89–99
[2024-03-04] VITALS (25 sets, daily range): BP systolic 110–181; BP diastolic 71–95; TEMP 97.7–98.7; O2SAT 86–100
[2024-03-04] MEDS: ALPRAZolam 0.5 MG TAB PO PRN (00:11)
[2024-03-05] VITALS (20 sets, daily range): BP systolic 126–148; BP diastolic 81–82; TEMP 97.5–98.5; O2SAT 88–98
[2024-03-05] MEDS ORDERED: BUSP10TA PO (12:02)
[2024-03-05] MEDS ORDERED: ALPR0.5T3 PO (12:02)
[2024-03-05] MEDS: PROLASTIN C IV SCH (15:49)
[2024-03-06] MEDS ORDERED: FLUTISP NARES (01:17)
[2024-03-06] MEDS ORDERED: BUSP10TA79 PO (01:17)
[2024-03-06] MEDS ORDERED: ALPR0.5T3 PO (01:17)
== END 2024-03-05 16:44 | disposition home health service (06) | DRG 133 ==
LOC: EDBD 06:22 → M ED 06:22 → M ED INP 12:26 → M PCU 14:09 → M ICU 02-13 11:23 → M PCU 02-18 14:33
PROVIDERS: ADMIT Internal Medicine; ATTEND Internal Medicine Critical Care Medicine
PROC: B246ZZZ Ultrasonography of Right and Left Heart (ICD-10-PCS; principal; 2024-02-14)
DX: J96.21 Acute and chronic respiratory failure with hypoxia (principal); J15.211 Pneumonia due to Methicillin susceptible Staphylococcus aureus; E43 Unspecified severe protein-calorie malnutrition; G93.41 Metabolic encephalopathy; E87.4 Mixed disorder of acid-base balance; R78.81 Bacteremia; R64 Cachexia; E88.01 Alpha-1-antitrypsin deficiency; J44.1 Chronic obstructive pulmonary disease with (acute) exacerbation; J43.9 Emphysema, unspecified; J44.0 Chronic obstructive pulmonary disease with (acute) lower respiratory infection; E87.5 Hyperkalemia; F41.9 Anxiety disorder, unspecified; F32.A Depression, unspecified; Z87.891 Personal history of nicotine dependence; Z68.1 Body mass index [BMI] 19.9 or less, adult; Z79.899 Other long term (current) drug therapy; Z88.0 Allergy status to penicillin; R91.8 Other nonspecific abnormal finding of lung field; J96.22 Acute and chronic respiratory failure with hypercapnia; B95.61 Methicillin susceptible Staphylococcus aureus infection as the cause of diseases classified elsewhere

== ENCOUNTER 2024-03-05 19:54 | Inpatient (IN) | payer OTHER ==
[~2024-03-05] VITALS: Ht 144.8 cm; Wt 49.8 kg
[~2024-03-05 19:54] MED LIST changes: -ADV500INH INH; +ADVA1AER10 INH; +ALBU2.5V10 INH; +ALPR0.5T3 PO; +BUSP10TA PO; +FLUO-96 PO; +FLUT1BLS6 INH; +IBUP-1022 PO
[2024-03-05 20:18] LABS: VENOUS BASE EXCESS 18.9 (-2.0-2.0); VENOUS HCO3 51.4 MMOL/L (23.0-27.0); VENOUS O2 SATURATION 77.1 % (60.0-80.0); VENOUS PARTIAL PRESSURE CO2 112.6 mmHg (38.0-50.0); VENOUS PARTIAL PRESSURE O2 45.1 mmHg (30.0-50.0); VENOUS PH 7.277 UNITS (7.330-7.430); VENOUS STANDARD HCO3 42.6 MMOL/L; VENOUS TOTAL CO2 54.8 MMOL/L (24.0-28.0)
[2024-03-05 20:23] LABS: BASO % 0.2 % (0.0-1.0); EOS # 0.2 10^3/uL (0.0-0.5); EOS % 2.5 % (0.0-3.0); HEMATOCRIT 41.7 % (42.0-52.0); HEMOGLOBIN 12.2 g/dl (13.5-17.5); LYMPH # 0.6 10^3/uL (1.5-5.0); LYMPH % 6.6 % (24.0-44.0); MEAN CORPUSCULAR HEMOGLOBIN 28.8 pg (27.0-33.0); MEAN CORPUSCULAR HGB CONC 29.3 g/dl (32.0-36.5); MEAN CORPUSCULAR VOLUME 98.3 fl (80.0-96.0); MONO # 0.3 10^3/uL (0.0-0.8); MONO % 3.8 % (2.0-8.0); NEUTROPHILS # 7.6 10^3/uL (1.5-8.5); NEUTROPHILS % 86.6 % (36.0-66.0); PLATELET COUNT, AUTOMATED 121 10^3/uL (150-450); RED BLOOD COUNT 4.24 10^6/uL (4.30-6.10); WHITE BLOOD COUNT 8.8 10^3/uL (4.0-10.0)
[2024-03-05 20:43] LABS: CK-MB VALUE MASS 4.9 NG/ML (<3.6)
[2024-03-05 20:44] LABS: CPK CREATINE PHOSPHOKINASE 49 U/L (46-171)
[2024-03-05 20:45] LABS: ALKALINE PHOSPHATASE 62 U/L (40-129); ALT/SGPT 17 U/L (7.0-40); AST/SGOT 13 U/L (<34); BILIRUBIN,DIRECT < 0.1 MG/DL (<0.4); BILIRUBIN,TOTAL 0.4 MG/DL (0.3-1.2); BLOOD UREA NITROGEN 15 MG/DL (9-23); CALCIUM LEVEL 10.2 MG/DL (8.5-10.1); CARBON DIOXIDE LEVEL > 40.0 MMOL/L (20-31); CHLORIDE LEVEL 89 MMOL/L (98-107); CREATININE FOR GFR 0.51 MG/DL (0.70-1.30); GLOMERULAR FILTRATION RATE > 60.0 (>60); GLUCOSE, FASTING 180 MG/DL (60-100); POTASSIUM SERUM 4.9 MMOL/L (3.5-5.1); SODIUM LEVEL 139 MMOL/L (136-145); TOTAL PROTEIN 7.1 G/DL (5.7-8.2)
[2024-03-05] MEDS: IPRATROPIUM 0.5MG/ALBUTEROL 2.5MG INH SOL UD 3ML (DUONEB) NEB ONE ×2 (21:00→21:05)
[2024-03-06] VITALS (19 sets, daily range): BP systolic 136–144; BP diastolic 81–89; TEMP 97.1–97.9; O2SAT 86–100
[2024-03-06] MEDS ORDERED: ALPR0.5T3 PO (01:17)
[2024-03-06] MEDS ORDERED: BUSP10TA79 PO (01:17)
[2024-03-06] MEDS ORDERED: FLUTISP NARES (01:17)
[2024-03-06] MEDS ORDERED: HOME MED LIST COMPLETE! XX SCH (01:20)
[2024-03-06] MEDS ORDERED: ACETAMINOPHEN 325 MG TAB PO PRN (02:50)
[2024-03-06] MEDS: NS (Normal Saline) 0.9% 1,000 ML IV SCH (02:50)
[2024-03-06] MEDS ORDERED: MOM 30ML SUSPENSION UDC PO PRN (02:50)
[2024-03-06] MEDS ORDERED: MAALOX 30 ML SUSP *UDC PO PRN (02:50)
[2024-03-06] MEDS ORDERED: IBUPROFEN 600MG TAB PO PRN (02:55)
[2024-03-06] MEDS: LevoFLOXacin 750 MG TABLET PO SCH (03:56)
[2024-03-06] MEDS: ALPRAZolam 0.5 MG TAB PO ONE (03:56)
[2024-03-06] MEDS: methylPREDNISolone 125MG 2ML VIAL IV SCH (03:56)
[2024-03-06] MEDS: IPRATROPIUM 0.5MG/ALBUTEROL 2.5MG INH SOL UD 3ML (DUONEB) NEB SCH (04:13)
[2024-03-06 07:32] LABS: ABG HCO3 47.1 MMOL/L (22.0-26.0); ABG O2 SATURATION 88.5 % (95.0-99.0); ABG PARTIAL PRESSURE O2 57.3 mmHg (75.0-100.0); ABG STANDARD HCO3 40.8 MMOL/L. (22.0-26.0); ABG TOTAL CO2 49.9 MMOL/L (22.0-29.0); ABG pH (ARTERIAL) 7.335 UNITS (7.350-7.450)
[2024-03-06 07:36] LABS: ABG PARTIAL PRESSURE CO2 90.4 mmHg (35.0-45.0)
[2024-03-06] MEDS: FLUoxetine 20MG CAP PO SCH (08:34)
[2024-03-06] MEDS: DOCUSATE SODIUM 100MG CAPSULE PO SCH (08:34)
[2024-03-06] MEDS: busPIRone 10 MG TAB PO SCH (08:34)
[2024-03-06] MEDS: ENOXAPARIN 40MG/0.4ML SYRINGE (J1650 PER 10MG) SC SCH (08:35)
[2024-03-06] MEDS: ALPRAZolam 0.5 MG TAB PO SCH (08:35)
[2024-03-06] MEDS: FLUTICASONE PROP 0.05% NASAL SPRAY 16 GM (FLONASE) NARES SCH (08:35)
[2024-03-06] MEDS: busPIRone 10 MG TAB PO PRN (12:48)
[2024-03-06] MEDS: ALPRAZolam 0.5 MG TAB PO PRN (23:51)
[2024-03-07] VITALS (16 sets, daily range): BP systolic 127–151; BP diastolic 84–91; TEMP 97.6–98.7; O2SAT 88–99
[2024-03-07 05:00] LABS: HEMATOCRIT 37.8 % (42.0-52.0); HEMOGLOBIN 11.2 g/dl (13.5-17.5); MEAN CORPUSCULAR HEMOGLOBIN 28.6 pg (27.0-33.0); MEAN CORPUSCULAR HGB CONC 29.6 g/dl (32.0-36.5); MEAN CORPUSCULAR VOLUME 96.7 fl (80.0-96.0); PLATELET COUNT, AUTOMATED 116 10^3/uL (150-450); RED BLOOD COUNT 3.91 10^6/uL (4.30-6.10); WHITE BLOOD COUNT 6.2 10^3/uL (4.0-10.0)
[2024-03-07 05:27] LABS: BLOOD UREA NITROGEN 18 MG/DL (9-23); CALCIUM LEVEL 9.6 MG/DL (8.5-10.1); CARBON DIOXIDE LEVEL > 40.0 MMOL/L (20-31); CHLORIDE LEVEL 93 MMOL/L (98-107); CREATININE FOR GFR 0.47 MG/DL (0.70-1.30); GLOMERULAR FILTRATION RATE > 60.0 (>60); GLUCOSE, FASTING 111 MG/DL (60-100); MAGNESIUM LEVEL 2.3 MG/DL (1.8-2.4); POTASSIUM SERUM 5.1 MMOL/L (3.5-5.1); SODIUM LEVEL 140 MMOL/L (136-145)
[2024-03-07 06:05] LABS: ABG BASE EXCESS 14.4 (-2.0-2.0); ABG HCO3 44.7 MMOL/L (22.0-26.0); ABG O2 SATURATION 99.4 % (95.0-99.0); ABG PARTIAL PRESSURE O2 165.8 mmHg (75.0-100.0); ABG STANDARD HCO3 38.3 MMOL/L. (22.0-26.0); ABG TOTAL CO2 47.6 MMOL/L (22.0-29.0); ABG pH (ARTERIAL) 7.293 UNITS (7.350-7.450)
[2024-03-07 06:07] LABS: ABG PARTIAL PRESSURE CO2 94.5 mmHg (35.0-45.0)
[2024-03-07 07:56] LABS: PROCALCITONIN 0.04 ng/ml
[2024-03-07] MEDS ORDERED: PILL CUTTER 1 EACH XX PRN (11:05)
[2024-03-07] MEDS: PANTOPRAZOLE 40MG VIAL IV SCH (13:28)
[2024-03-07] MEDS: methylPREDNISolone 125MG 2ML VIAL IV SCH (13:29)
[2024-03-08] VITALS (23 sets, daily range): BP systolic 126–148; BP diastolic 75–91; TEMP 98–99.1; O2SAT 87–99
[2024-03-08 04:58] LABS: HEMATOCRIT 36.4 % (42.0-52.0); HEMOGLOBIN 10.9 g/dl (13.5-17.5); LYMPH # 0.6 10^3/uL (1.5-5.0); LYMPH % 9.2 % (24.0-44.0); MEAN CORPUSCULAR HEMOGLOBIN 28.5 pg (27.0-33.0); MEAN CORPUSCULAR HGB CONC 29.9 g/dl (32.0-36.5); MONO # 0.3 10^3/uL (0.0-0.8); MONO % 4.1 % (2.0-8.0); NEUTROPHILS # 5.3 10^3/uL (1.5-8.5); NEUTROPHILS % 86.4 % (36.0-66.0); PLATELET COUNT, AUTOMATED 120 10^3/uL (150-450); RED BLOOD COUNT 3.83 10^6/uL (4.30-6.10); WHITE BLOOD COUNT 6.1 10^3/uL (4.0-10.0)
[2024-03-08 05:35] LABS: ALBUMIN 3.6 G/DL (3.2-5.2); ALKALINE PHOSPHATASE 47 U/L (40-129); ALT/SGPT 16 U/L (7.0-40); AST/SGOT 11 U/L (<34); BILIRUBIN,TOTAL 0.4 MG/DL (0.3-1.2); BLOOD UREA NITROGEN 15 MG/DL (9-23); CALCIUM LEVEL 9.4 MG/DL (8.5-10.1); CARBON DIOXIDE LEVEL > 40.0 MMOL/L (20-31); CHLORIDE LEVEL 94 MMOL/L (98-107); CREATININE FOR GFR 0.54 MG/DL (0.70-1.30); GLOMERULAR FILTRATION RATE > 60.0 (>60); GLUCOSE, FASTING 109 MG/DL (60-100); MAGNESIUM LEVEL 2.2 MG/DL (1.8-2.4); PHOSPHORUS LEVEL 4.9 MG/DL (2.5-4.9); POTASSIUM SERUM 4.5 MMOL/L (3.5-5.1); PROCALCITONIN 0.04 ng/ml; SODIUM LEVEL 138 MMOL/L (136-145); TOTAL PROTEIN 6.5 G/DL (5.7-8.2)
[2024-03-09] VITALS (21 sets, daily range): BP systolic 118–145; BP diastolic 63–84; TEMP 98.1–98.8; O2SAT 70–99
[2024-03-09 05:41] LABS: HEMATOCRIT 37.1 % (42.0-52.0); HEMOGLOBIN 11.1 g/dl (13.5-17.5); MEAN CORPUSCULAR HEMOGLOBIN 28.7 pg (27.0-33.0); MEAN CORPUSCULAR HGB CONC 29.9 g/dl (32.0-36.5); MEAN CORPUSCULAR VOLUME 95.9 fl (80.0-96.0); PLATELET COUNT, AUTOMATED 119 10^3/uL (150-450); RED BLOOD COUNT 3.87 10^6/uL (4.30-6.10); WHITE BLOOD COUNT 5.8 10^3/uL (4.0-10.0)
[2024-03-09 06:05] LABS: ALBUMIN 3.4 G/DL (3.2-5.2); ALKALINE PHOSPHATASE 47 U/L (40-129); ALT/SGPT 14 U/L (7.0-40); AST/SGOT < 8 U/L (<34); BILIRUBIN,TOTAL 0.4 MG/DL (0.3-1.2); BLOOD UREA NITROGEN 16 MG/DL (9-23); CALCIUM LEVEL 9.2 MG/DL (8.5-10.1); CARBON DIOXIDE LEVEL > 40.0 MMOL/L (20-31); CHLORIDE LEVEL 94 MMOL/L (98-107); GLOMERULAR FILTRATION RATE > 60.0 (>60); GLUCOSE, FASTING 131 MG/DL (60-100); POTASSIUM SERUM 4.7 MMOL/L (3.5-5.1); SODIUM LEVEL 140 MMOL/L (136-145); TOTAL PROTEIN 6.3 G/DL (5.7-8.2)
[2024-03-10] VITALS (14 sets, daily range): BP systolic 120–143; BP diastolic 73–85; TEMP 98–98.9; O2SAT 88–100
[2024-03-10 05:31] LABS: HEMATOCRIT 37.9 % (42.0-52.0); HEMOGLOBIN 11.1 g/dl (13.5-17.5); MEAN CORPUSCULAR HEMOGLOBIN 28.2 pg (27.0-33.0); MEAN CORPUSCULAR HGB CONC 29.3 g/dl (32.0-36.5); MEAN CORPUSCULAR VOLUME 96.4 fl (80.0-96.0); PLATELET COUNT, AUTOMATED 117 10^3/uL (150-450); RED BLOOD COUNT 3.93 10^6/uL (4.30-6.10); WHITE BLOOD COUNT 5.4 10^3/uL (4.0-10.0)
[2024-03-10 05:52] LABS: BLOOD UREA NITROGEN 14 MG/DL (9-23); CALCIUM LEVEL 8.8 MG/DL (8.5-10.1); CARBON DIOXIDE LEVEL > 40.0 MMOL/L (20-31); CHLORIDE LEVEL 92 MMOL/L (98-107); CREATININE FOR GFR 0.37 MG/DL (0.70-1.30); GLOMERULAR FILTRATION RATE > 60.0 (>60); GLUCOSE, FASTING 180 MG/DL (60-100); POTASSIUM SERUM 4.3 MMOL/L (3.5-5.1); SODIUM LEVEL 138 MMOL/L (136-145)
[2024-03-11] VITALS (14 sets, daily range): BP systolic 139–157; BP diastolic 76–98; TEMP 97.6–98.6; O2SAT 90–97
[2024-03-11 05:18] LABS: HEMATOCRIT 38.5 % (42.0-52.0); HEMOGLOBIN 11.6 g/dl (13.5-17.5); MEAN CORPUSCULAR HEMOGLOBIN 28.8 pg (27.0-33.0); MEAN CORPUSCULAR HGB CONC 30.1 g/dl (32.0-36.5); MEAN CORPUSCULAR VOLUME 95.5 fl (80.0-96.0); PLATELET COUNT, AUTOMATED 143 10^3/uL (150-450); RED BLOOD COUNT 4.03 10^6/uL (4.30-6.10); WHITE BLOOD COUNT 6.3 10^3/uL (4.0-10.0)
[2024-03-11 05:57] LABS: BLOOD UREA NITROGEN 14 MG/DL (9-23); CALCIUM LEVEL 9.2 MG/DL (8.5-10.1); CARBON DIOXIDE LEVEL > 40.0 MMOL/L (20-31); CHLORIDE LEVEL 92 MMOL/L (98-107); CREATININE FOR GFR 0.38 MG/DL (0.70-1.30); GLOMERULAR FILTRATION RATE > 60.0 (>60); GLUCOSE, FASTING 102 MG/DL (60-100); POTASSIUM SERUM 4.6 MMOL/L (3.5-5.1); SODIUM LEVEL 139 MMOL/L (136-145)
[2024-03-11 09:43] LABS: MAGNESIUM LEVEL 2.2 MG/DL (1.8-2.4)
[2024-03-12] VITALS (20 sets, daily range): BP systolic 139–167; BP diastolic 81–96; TEMP 97.9–98.2; O2SAT 82–99
[2024-03-12 05:03] LABS: HEMATOCRIT 39.3 % (42.0-52.0); HEMOGLOBIN 11.8 g/dl (13.5-17.5); MEAN CORPUSCULAR HEMOGLOBIN 28.8 pg (27.0-33.0); MEAN CORPUSCULAR VOLUME 95.9 fl (80.0-96.0); PLATELET COUNT, AUTOMATED 148 10^3/uL (150-450); WHITE BLOOD COUNT 5.8 10^3/uL (4.0-10.0)
[2024-03-12 05:23] LABS: BLOOD UREA NITROGEN 17 MG/DL (9-23); CALCIUM LEVEL 9.2 MG/DL (8.5-10.1); CARBON DIOXIDE LEVEL > 40.0 MMOL/L (20-31); CHLORIDE LEVEL 91 MMOL/L (98-107); CREATININE FOR GFR 0.38 MG/DL (0.70-1.30); GLOMERULAR FILTRATION RATE > 60.0 (>60); GLUCOSE, FASTING 129 MG/DL (60-100); POTASSIUM SERUM 4.8 MMOL/L (3.5-5.1); SODIUM LEVEL 138 MMOL/L (136-145)
[2024-03-12] MEDS: ALBUTEROL 90 MCG/ACT 8GM HFA INHALER INH PRN (12:09)
[2024-03-12] MEDS: PROLASTIN C IV SCH (13:00)
[2024-03-13 03:25] VITALS: BP 151/90; TEMP 97.9; O2SAT 95
[2024-03-13 06:11] LABS: HEMATOCRIT 41.3 % (42.0-52.0); HEMOGLOBIN 12.3 g/dl (13.5-17.5); MEAN CORPUSCULAR HEMOGLOBIN 28.5 pg (27.0-33.0); MEAN CORPUSCULAR HGB CONC 29.8 g/dl (32.0-36.5); MEAN CORPUSCULAR VOLUME 95.6 fl (80.0-96.0); PLATELET COUNT, AUTOMATED 154 10^3/uL (150-450); RED BLOOD COUNT 4.32 10^6/uL (4.30-6.10)
[2024-03-13 06:42] LABS: BLOOD UREA NITROGEN 16 MG/DL (9-23); CALCIUM LEVEL 9.6 MG/DL (8.5-10.1); CARBON DIOXIDE LEVEL > 40.0 MMOL/L (20-31); CHLORIDE LEVEL 91 MMOL/L (98-107); CREATININE FOR GFR 0.39 MG/DL (0.70-1.30); GLOMERULAR FILTRATION RATE > 60.0 (>60); GLUCOSE, FASTING 112 MG/DL (60-100); SODIUM LEVEL 140 MMOL/L (136-145)
[2024-03-13 21:00] VITALS: BP 135/94; TEMP 98.1; O2SAT 94
[2024-03-14 03:59] VITALS: BP 146/86; TEMP 97.5; O2SAT 98
[2024-03-14 06:15] LABS: HEMATOCRIT 42.3 % (42.0-52.0); HEMOGLOBIN 12.5 g/dl (13.5-17.5); MEAN CORPUSCULAR HEMOGLOBIN 28.7 pg (27.0-33.0); MEAN CORPUSCULAR HGB CONC 29.6 g/dl (32.0-36.5); MEAN CORPUSCULAR VOLUME 97.2 fl (80.0-96.0); PLATELET COUNT, AUTOMATED 183 10^3/uL (150-450); RED BLOOD COUNT 4.35 10^6/uL (4.30-6.10); WHITE BLOOD COUNT 8.9 10^3/uL (4.0-10.0)
[2024-03-14 06:48] LABS: BLOOD UREA NITROGEN 17 MG/DL (9-23); CALCIUM LEVEL 9.2 MG/DL (8.5-10.1); CARBON DIOXIDE LEVEL > 40.0 MMOL/L (20-31); CHLORIDE LEVEL 91 MMOL/L (98-107); CREATININE FOR GFR 0.42 MG/DL (0.70-1.30); GLOMERULAR FILTRATION RATE > 60.0 (>60); GLUCOSE, FASTING 126 MG/DL (60-100); POTASSIUM SERUM 5.2 MMOL/L (3.5-5.1); SODIUM LEVEL 142 MMOL/L (136-145)
[2024-03-14 12:00] VITALS: BP 132/87; TEMP 97.2; O2SAT 96
[2024-03-14] MEDS: busPIRone 10 MG TAB PO SCH (16:00)
[2024-03-14 19:45] VITALS: BP 133/87; TEMP 97.5; O2SAT 95
[2024-03-15 04:00] VITALS: BP 131/88; TEMP 97.7; O2SAT 98
[2024-03-15 06:16] LABS: HEMATOCRIT 39.3 % (42.0-52.0); HEMOGLOBIN 11.7 g/dl (13.5-17.5); MEAN CORPUSCULAR HEMOGLOBIN 29.2 pg (27.0-33.0); MEAN CORPUSCULAR HGB CONC 29.8 g/dl (32.0-36.5); PLATELET COUNT, AUTOMATED 166 10^3/uL (150-450); RED BLOOD COUNT 4.01 10^6/uL (4.30-6.10); WHITE BLOOD COUNT 8.6 10^3/uL (4.0-10.0)
[2024-03-15 07:43] LABS: BLOOD UREA NITROGEN 19 MG/DL (9-23); CALCIUM LEVEL 9.1 MG/DL (8.5-10.1); CARBON DIOXIDE LEVEL > 40.0 MMOL/L (20-31); CHLORIDE LEVEL 91 MMOL/L (98-107); CREATININE FOR GFR 0.44 MG/DL (0.70-1.30); GLOMERULAR FILTRATION RATE > 60.0 (>60); GLUCOSE, FASTING 175 MG/DL (60-100); POTASSIUM SERUM 4.8 MMOL/L (3.5-5.1); SODIUM LEVEL 140 MMOL/L (136-145)
[2024-03-15 11:45] VITALS: BP 134/88; TEMP 97.7; O2SAT 99
[2024-03-15] MEDS: IPRATROPIUM 0.5MG/ALBUTEROL 2.5MG INH SOL UD 3ML (DUONEB) NEB SCH (15:13)
[2024-03-15 20:58] VITALS: BP 147/86; TEMP 98.1; O2SAT 96
[2024-03-16 04:00] VITALS: BP 147/88; TEMP 97.7; O2SAT 94
[2024-03-16] MEDS: ALBUTEROL SULFATE 2.5MG/0.5ML INH NEB SOLN INH PRN (04:38)
[2024-03-16 05:55] LABS: HEMATOCRIT 39.5 % (42.0-52.0); HEMOGLOBIN 11.6 g/dl (13.5-17.5); MEAN CORPUSCULAR HEMOGLOBIN 28.8 pg (27.0-33.0); MEAN CORPUSCULAR HGB CONC 29.4 g/dl (32.0-36.5); PLATELET COUNT, AUTOMATED 181 10^3/uL (150-450); RED BLOOD COUNT 4.03 10^6/uL (4.30-6.10); WHITE BLOOD COUNT 8.5 10^3/uL (4.0-10.0)
[2024-03-16 06:20] LABS: BLOOD UREA NITROGEN 18 MG/DL (9-23); CALCIUM LEVEL 9.2 MG/DL (8.5-10.1); CARBON DIOXIDE LEVEL > 40.0 MMOL/L (20-31); CHLORIDE LEVEL 89 MMOL/L (98-107); CREATININE FOR GFR 0.35 MG/DL (0.70-1.30); GLOMERULAR FILTRATION RATE > 60.0 (>60); GLUCOSE, FASTING 182 MG/DL (60-100); POTASSIUM SERUM 5.1 MMOL/L (3.5-5.1); SODIUM LEVEL 139 MMOL/L (136-145)
[2024-03-16] MEDS: PANTOPRAZOLE 40MG TAB (PROTONIX) PO SCH (09:00)
[2024-03-16 12:00] VITALS: BP 141/81; TEMP 97.7; O2SAT 96
[2024-03-16] MEDS: predniSONE 20 MG TAB PO SCH (16:44)
[2024-03-16 19:26] VITALS: O2SAT 92
[2024-03-17 04:48] VITALS: BP 141/90; TEMP 97.9; O2SAT 89
[2024-03-18 06:00] VITALS: BP 139/86; TEMP 97.9; O2SAT 96
[2024-03-18 08:49] LABS: MEAN CORPUSCULAR HEMOGLOBIN 28.6 pg (27.0-33.0); MEAN CORPUSCULAR VOLUME 95.2 fl (80.0-96.0); PLATELET COUNT, AUTOMATED 176 10^3/uL (150-450); WHITE BLOOD COUNT 8.8 10^3/uL (4.0-10.0)
[2024-03-18 20:13] VITALS: O2SAT 93
[2024-03-19 03:47] VITALS: BP 155/98; TEMP 97.5; O2SAT 93
[2024-03-20 03:20] VITALS: BP 158/78; TEMP 97.9; O2SAT 94
[2024-03-21 04:26] VITALS: BP 150/80; TEMP 97.7; O2SAT 92
[2024-03-22 04:02] VITALS: BP 148/90; TEMP 97.9; O2SAT 94
[2024-03-22 08:36] LABS: HEMATOCRIT 40.7 % (42.0-52.0); HEMOGLOBIN 12.3 g/dl (13.5-17.5); MEAN CORPUSCULAR HEMOGLOBIN 29.1 pg (27.0-33.0); MEAN CORPUSCULAR HGB CONC 30.2 g/dl (32.0-36.5); MEAN CORPUSCULAR VOLUME 96.4 fl (80.0-96.0); PLATELET COUNT, AUTOMATED 205 10^3/uL (150-450); RED BLOOD COUNT 4.22 10^6/uL (4.30-6.10); WHITE BLOOD COUNT 17.9 10^3/uL (4.0-10.0)
[2024-03-22 09:10] LABS: BLOOD UREA NITROGEN 24 MG/DL (9-23); CARBON DIOXIDE LEVEL > 40.0 MMOL/L (20-31); CHLORIDE LEVEL 88 MMOL/L (98-107); CREATININE FOR GFR 0.44 MG/DL (0.70-1.30); GLOMERULAR FILTRATION RATE > 60.0 (>60); GLUCOSE, FASTING 175 MG/DL (60-100); POTASSIUM SERUM 5.1 MMOL/L (3.5-5.1); SODIUM LEVEL 140 MMOL/L (136-145)
[2024-03-23 03:45] VITALS: BP 162/88; TEMP 97.7; O2SAT 92
[2024-03-23] MEDS: predniSONE 20 MG TAB PO ONE (21:24)
[2024-03-24 06:28] VITALS: BP 135/79; TEMP 97.3; O2SAT 97
[2024-03-24] MEDS: predniSONE 20 MG TAB PO SCH (09:17)
[2024-03-24] MEDS ORDERED: PROT1TAB2 PO (10:26)
[2024-03-24] MEDS ORDERED: ALBU2.5V10 INH (10:26)
[2024-03-24] MEDS ORDERED: SPIR1CAP INH (10:26)
[2024-03-24] MEDS ORDERED: PRED10TA2 PO (10:26)
== END 2024-03-24 15:30 | disposition home or self-care (01) | DRG 133 ==
LOC: M ED 19:54 → EDBD 19:54 → M ED INP 03-06 02:48 → M ICU 03-06 04:00 → M MSPAV 03-12 14:57
PROVIDERS: ADMIT Student in an Organized Health Care Education/Training Program; ATTEND Internal Medicine
DX: J96.22 Acute and chronic respiratory failure with hypercapnia (principal); R64 Cachexia; E88.01 Alpha-1-antitrypsin deficiency; Z99.81 Dependence on supplemental oxygen; J43.9 Emphysema, unspecified; J44.9 Chronic obstructive pulmonary disease, unspecified; F32.A Depression, unspecified; F41.9 Anxiety disorder, unspecified; R62.7 Adult failure to thrive; Z68.1 Body mass index [BMI] 19.9 or less, adult; Z87.891 Personal history of nicotine dependence; R91.8 Other nonspecific abnormal finding of lung field; Z79.899 Other long term (current) drug therapy; Z91.199 Patient's noncompliance with other medical treatment and regimen due to unspecified reason; J96.21 Acute and chronic respiratory failure with hypoxia; Z88.8 Allergy status to other drugs, medicaments and biological substances

== ENCOUNTER 2024-04-12 12:38 | Inpatient (IN) | payer MEDICAID, OTHER ==
[~2024-04-12] VITALS: Ht 167.6 cm; Wt 47.0 kg
[2024-04-12] VITALS (34 sets, daily range): BP systolic 69–100; BP diastolic 46–65; TEMP 98.4; O2SAT 92–99
[~2024-04-12 12:38] MED LIST changes: +BUSP10TA79 PO; +FLUTISP NARES; +PRED10TA2 PO; +PROT1TAB2 PO; +SPIR1CAP INH
[2024-04-12 13:11] LABS: VENOUS BASE EXCESS 24.3 (-2.0-2.0); VENOUS HCO3 59.5 MMOL/L (23.0-27.0); VENOUS O2 SATURATION 62.1 % (60.0-80.0); VENOUS PARTIAL PRESSURE CO2 159.4 mmHg (38.0-50.0); VENOUS PARTIAL PRESSURE O2 34.3 mmHg (30.0-50.0); VENOUS STANDARD HCO3 48.2 MMOL/L; VENOUS TOTAL CO2 64.4 MMOL/L (24.0-28.0)
[2024-04-12 13:15] LABS: BASO % 0.2 % (0.0-1.0); EOS # 0.1 10^3/uL (0.0-0.5); EOS % 1.3 % (0.0-3.0); HEMOGLOBIN 11.1 g/dl (13.5-17.5); LYMPH # 0.4 10^3/uL (1.5-5.0); LYMPH % 7.7 % (24.0-44.0); MEAN CORPUSCULAR HEMOGLOBIN 29.8 pg (27.0-33.0); MEAN CORPUSCULAR VOLUME 99.5 fl (80.0-96.0); MONO # 0.4 10^3/uL (0.0-0.8); MONO % 7.1 % (2.0-8.0); NEUTROPHILS # 4.6 10^3/uL (1.5-8.5); NEUTROPHILS % 82.4 % (36.0-66.0); PLATELET COUNT, AUTOMATED 152 10^3/uL (150-450); RED BLOOD COUNT 3.72 10^6/uL (4.30-6.10); WHITE BLOOD COUNT 5.6 10^3/uL (4.0-10.0)
[2024-04-12 13:44] LABS: ETHYL ALCOHOL (ETHANOL) < 0.003 % (0.000-0.010)
[2024-04-12 13:46] LABS: SALICYLATE LEVEL < 3.0 MG/DL (<30)
[2024-04-12 13:49] LABS: BLOOD UREA NITROGEN 9 MG/DL (9-23); CALCIUM LEVEL 9.3 MG/DL (8.5-10.1); CARBON DIOXIDE LEVEL > 40.0 MMOL/L (20-31); CHLORIDE LEVEL 86 MMOL/L (98-107); GLOMERULAR FILTRATION RATE > 60.0 (>60); GLUCOSE, FASTING 112 MG/DL (60-100); POTASSIUM SERUM 4.5 MMOL/L (3.5-5.1); SODIUM LEVEL 140 MMOL/L (136-145)
[2024-04-12] MEDS: ETOMIDATE INJ 20MG/10ML VIAL IV ONE (15:49)
[2024-04-12] MEDS: ROCURONIUM BROMIDE 50MG/5ML VIAL IV ONE (15:49)
[2024-04-12] MEDS: NS (Normal Saline) 0.9% 1,000 ML IV ONE (16:00)
[2024-04-12] MEDS: CEFEPIME HCL 2 GM in DEXTROSE 5% (D5W) ADV/MINI-BAG 50 ML IV ONE (16:00)
[2024-04-12] MEDS: MIDAZOLAM INJ 2MG/2ML VIAL IV PRN (16:12)
[2024-04-12] MEDS: propofoL 1,000 MG in IV 1 EA IV SCH ×2 (16:39→19:00)
[2024-04-12] MEDS: MIDAZOLAM 100MG/100ML-0.9%NACL 100 MG in IV 1 EA IV SCH (17:20)
[2024-04-12] MEDS ORDERED: MIDAZOLAM 100MG/100ML-0.9%NACL 100 MG in IV 1 EA IV SCH (17:30)
[2024-04-12] MEDS ORDERED: IPRA0.00 INH (17:47)
[2024-04-12] MEDS ORDERED: PANT-23 PO (17:47)
[2024-04-12] MEDS ORDERED: ALPR0.5T3 PO (17:47)
[2024-04-12] MEDS ORDERED: TREL1AER INH (17:47)
[2024-04-12] MEDS ORDERED: HOME MED LIST COMPLETE! XX SCH (17:50)
[2024-04-12] MEDS: LR 1,000 ML IV SCH (18:44)
[2024-04-12] MEDS ORDERED: FENTANYL DRIP LOCK BOX KEY 1 EACH XX PRN (19:20)
[2024-04-12] MEDS: fentaNYL CITRATE/NaCl 1,000 MCG in IV 1 EA IV SCH (19:44)
[2024-04-12] MEDS ORDERED: COMBIVENT RESPIMAT 100-20MCG INHALER 4GM INH SCH (20:00)
[2024-04-12] MEDS: COMBIVENT RESPIMAT 100-20MCG INHALER 4GM INH SCH (20:00)
[2024-04-12] MEDS: NOREPINEPHRINE 4MG IN D5 250ML 4 MG in IV 1 EA IV SCH (20:16)
[2024-04-12] MEDS: busPIRone 10 MG TAB PO SCH (20:47)
[2024-04-12] MEDS: DOXYCYCLINE HYCLATE 100 MG in DEXTROSE 5% (D5W) MINI-BAG PLU 100 ML IV SCH (21:02)
[2024-04-12 23:56] LABS: VENOUS BASE EXCESS 21.3 (-2.0-2.0); VENOUS HCO3 45.9 MMOL/L (23.0-27.0); VENOUS O2 SATURATION 99.4 % (60.0-80.0); VENOUS PARTIAL PRESSURE CO2 51.5 mmHg (38.0-50.0); VENOUS PARTIAL PRESSURE O2 179.3 mmHg (30.0-50.0); VENOUS PH 7.568 UNITS (7.330-7.430); VENOUS STANDARD HCO3 45.6 MMOL/L; VENOUS TOTAL CO2 47.5 MMOL/L (24.0-28.0)
[2024-04-13] VITALS (62 sets, daily range): BP systolic 87–152; BP diastolic 56–90; TEMP 98–101; O2SAT 89–99
[2024-04-13] MEDS: GLYCOPYRROLATE INJ 0.2 MG/ML 2 ML VIAL NEB SCH (00:04)
[2024-04-13] MEDS: FORMOTEROL FUMARATE 20 MCG/2 ML INHALATION SOLUTION (PERFOROMIST) INH SCH (00:04)
[2024-04-13] MEDS: CEFEPIME HCL 2 GM in DEXTROSE 5% (D5W) ADV/MINI-BAG 50 ML IV SCH (00:23)
[2024-04-13] MEDS ORDERED: CEFEPIME HCL 1 GM in DEXTROSE 5% (D5W) ADV/MINI-BAG 50 ML IV SCH (04:00)
[2024-04-13 04:15] LABS: BASO % 0.4 % (0.0-1.0); EOS # 0.1 10^3/uL (0.0-0.5); EOS % 1.2 % (0.0-3.0); HEMATOCRIT 32.9 % (42.0-52.0); LYMPH % 11.6 % (24.0-44.0); MEAN CORPUSCULAR HEMOGLOBIN 29.4 pg (27.0-33.0); MEAN CORPUSCULAR HGB CONC 30.4 g/dl (32.0-36.5); MEAN CORPUSCULAR VOLUME 96.8 fl (80.0-96.0); MONO # 0.8 10^3/uL (0.0-0.8); MONO % 9.8 % (2.0-8.0); NEUTROPHILS # 6.2 10^3/uL (1.5-8.5); NEUTROPHILS % 74.2 % (36.0-66.0); PLATELET COUNT, AUTOMATED 200 10^3/uL (150-450); VENOUS BASE EXCESS 20.6 (-2.0-2.0); VENOUS HCO3 47.1 MMOL/L (23.0-27.0); VENOUS O2 SATURATION 99.4 % (60.0-80.0); VENOUS PARTIAL PRESSURE CO2 63.5 mmHg (38.0-50.0); VENOUS PARTIAL PRESSURE O2 178.8 mmHg (30.0-50.0); VENOUS PH 7.488 UNITS (7.330-7.430); VENOUS STANDARD HCO3 44.9 MMOL/L; WHITE BLOOD COUNT 8.3 10^3/uL (4.0-10.0)
[2024-04-13 04:51] LABS: ALBUMIN 2.7 G/DL (3.2-5.2); ALKALINE PHOSPHATASE 84 U/L (40-129); ALT/SGPT 20 U/L (7.0-40); AST/SGOT 16 U/L (<34); BILIRUBIN,DIRECT 0.1 MG/DL (<0.4); BILIRUBIN,TOTAL 0.4 MG/DL (0.3-1.2); BLOOD UREA NITROGEN 15 MG/DL (9-23); CALCIUM LEVEL 9.5 MG/DL (8.5-10.1); CARBON DIOXIDE LEVEL > 40.0 MMOL/L (20-31); CHLORIDE LEVEL 92 MMOL/L (98-107); CREATININE FOR GFR 0.75 MG/DL (0.70-1.30); GLOMERULAR FILTRATION RATE > 60.0 (>60); GLUCOSE, FASTING 101 MG/DL (60-100); MAGNESIUM LEVEL 1.7 MG/DL (1.8-2.4); PHOSPHORUS LEVEL 1.2 MG/DL (2.5-4.9); POTASSIUM SERUM 4.1 MMOL/L (3.5-5.1); SODIUM LEVEL 139 MMOL/L (136-145); TOTAL PROTEIN 5.5 G/DL (5.7-8.2)
[2024-04-13] MEDS: PANTOPRAZOLE 40MG VIAL IV SCH (08:07)
[2024-04-13] MEDS: ENOXAPARIN 40MG/0.4ML SYRINGE (J1650 PER 10MG) SC SCH (08:09)
[2024-04-13] MEDS: MAG SULF 1GM/100ML (MAG RUN) 1 GM in IV 1 EA IV ONE (08:33)
[2024-04-13] MEDS ORDERED: FLUT1BLS8 INH (09:32)
[2024-04-13] MEDS: IPRATROPIUM 0.5MG/ALBUTEROL 2.5MG INH SOL UD 3ML (DUONEB) NEB SCH (11:21)
[2024-04-13] MEDS: POTASSIUM PHOSPHATE INJ 30 MMOL in D5W 500 ML IV ONE (11:54)
[2024-04-13] MEDS ORDERED: dexmedeTOMIDine (4MCG/ML)200MCG/50ML BTL (PRECEDEX) As Ordered ONE (12:14)
[2024-04-13] MEDS ORDERED: DEXMEDETOMIDINE IV SCH (12:15)
[2024-04-13] MEDS: dexmedeTOMidine 200 MCG in IV 1 EA IV SCH (12:20)
[2024-04-13] MEDS ORDERED: FLUTICASONE PROP 0.05% NASAL SPRAY 16 GM (FLONASE) NARES PRN (18:50)
[2024-04-13] MEDS ORDERED: ALPRAZolam 0.5 MG TAB PO PRN (18:50)
[2024-04-13] MEDS: ALPRAZolam 0.5 MG TAB PO SCH (20:54)
[2024-04-14] VITALS (33 sets, daily range): BP systolic 83–153; BP diastolic 51–89; TEMP 98.2–99.5; O2SAT 91–99
[2024-04-14] MEDS: IPRATROPIUM 0.5MG/ALBUTEROL 2.5MG INH SOL UD 3ML (DUONEB) NEB PRN (02:12)
[2024-04-14] MEDS: OLANZapine INTRAMUSCULAR 10MG VIAL IM ONE (02:50)
[2024-04-14 05:18] LABS: ALBUMIN 2.9 G/DL (3.2-5.2); ALKALINE PHOSPHATASE 99 U/L (40-129); ALT/SGPT 19 U/L (7.0-40); AST/SGOT 27 U/L (<34); BILIRUBIN,TOTAL 0.5 MG/DL (0.3-1.2); BLOOD UREA NITROGEN 18 MG/DL (9-23); CALCIUM LEVEL 9.2 MG/DL (8.5-10.1); CARBON DIOXIDE LEVEL > 40.0 MMOL/L (20-31); CHLORIDE LEVEL 91 MMOL/L (98-107); CREATININE FOR GFR 0.59 MG/DL (0.70-1.30); GLOMERULAR FILTRATION RATE > 60.0 (>60); GLUCOSE, FASTING 95 MG/DL (60-100); POTASSIUM SERUM 4.6 MMOL/L (3.5-5.1); SODIUM LEVEL 140 MMOL/L (136-145); TOTAL PROTEIN 6.2 G/DL (5.7-8.2)
[2024-04-14 05:38] LABS: ABG BASE EXCESS 14.6 (-2.0-2.0); ABG HCO3 42.7 MMOL/L (22.0-26.0); ABG O2 SATURATION 97.9 % (95.0-99.0); ABG PARTIAL PRESSURE O2 107.8 mmHg (75.0-100.0); ABG STANDARD HCO3 38.4 MMOL/L. (22.0-26.0); ABG pH (ARTERIAL) 7.362 UNITS (7.350-7.450)
[2024-04-14 05:42] LABS: ABG PARTIAL PRESSURE CO2 76.9 mmHg (35.0-45.0)
[2024-04-14 09:33] LABS: PHOSPHORUS LEVEL 6.5 MG/DL (2.5-4.9)
[2024-04-14] MEDS: FLUoxetine 20MG CAP PO SCH (09:38)
[2024-04-14] MEDS: ALPRAZolam 0.5 MG TAB PO PRN (09:38)
[2024-04-14] MEDS ORDERED: [UNRECOGNIZED DRUG - CODE] IV (13:00)
[2024-04-14] MEDS: ACETAMINOPHEN 325 MG TAB PO PRN (15:24)
[2024-04-14] MEDS: PROLASTIN C IV ONE (15:24)
[2024-04-15] VITALS (43 sets, daily range): BP systolic 96–144; BP diastolic 55–84; TEMP 98.4–98.8; O2SAT 66–100
[2024-04-15 05:31] LABS: ABG BASE EXCESS 13.5 (-2.0-2.0); ABG HCO3 44.4 MMOL/L (22.0-26.0); ABG O2 SATURATION 97.4 % (95.0-99.0); ABG PARTIAL PRESSURE O2 103.9 mmHg (75.0-100.0); ABG STANDARD HCO3 37.3 MMOL/L. (22.0-26.0); ABG TOTAL CO2 47.6 MMOL/L (22.0-29.0)
[2024-04-15 05:32] LABS: ABG PARTIAL PRESSURE CO2 104.1 mmHg (35.0-45.0); ABG pH (ARTERIAL) 7.248 UNITS (7.350-7.450)
[2024-04-15 05:57] LABS: ALBUMIN 2.6 G/DL (3.2-5.2); ALKALINE PHOSPHATASE 91 U/L (40-129); ALT/SGPT 20 U/L (7.0-40); AST/SGOT 28 U/L (<34); BILIRUBIN,TOTAL 0.3 MG/DL (0.3-1.2); BLOOD UREA NITROGEN 14 MG/DL (9-23); CALCIUM LEVEL 9.1 MG/DL (8.5-10.1); CARBON DIOXIDE LEVEL > 40.0 MMOL/L (20-31); CHLORIDE LEVEL 100 MMOL/L (98-107); CREATININE FOR GFR 0.52 MG/DL (0.70-1.30); GLOMERULAR FILTRATION RATE > 60.0 (>60); GLUCOSE, FASTING 112 MG/DL (60-100); POTASSIUM SERUM 4.8 MMOL/L (3.5-5.1); SODIUM LEVEL 147 MMOL/L (136-145); TOTAL PROTEIN 5.9 G/DL (5.7-8.2)
[2024-04-15] MEDS: BUDESONIDE 0.25 MG/2 ML INHALATION SUSPENSION INH SCH (10:25)
[2024-04-15 11:06] LABS: PROCALCITONIN 0.11 ng/ml
[2024-04-15] MEDS: DOXYCYCLINE HYCLATE 100MG TABLET PO SCH (20:05)
[2024-04-16] VITALS (15 sets, daily range): BP systolic 109–140; BP diastolic 59–78; TEMP 97.2–98.8; O2SAT 86–100
[2024-04-16 05:14] LABS: HEMATOCRIT 36.8 % (42.0-52.0); HEMOGLOBIN 10.6 g/dl (13.5-17.5); MEAN CORPUSCULAR HEMOGLOBIN 29.2 pg (27.0-33.0); MEAN CORPUSCULAR HGB CONC 28.8 g/dl (32.0-36.5); MEAN CORPUSCULAR VOLUME 101.4 fl (80.0-96.0); PLATELET COUNT, AUTOMATED 186 10^3/uL (150-450); RED BLOOD COUNT 3.63 10^6/uL (4.30-6.10); WHITE BLOOD COUNT 6.3 10^3/uL (4.0-10.0)
[2024-04-16 05:52] LABS: ALBUMIN 2.8 G/DL (3.2-5.2); ALKALINE PHOSPHATASE 95 U/L (40-129); ALT/SGPT 21 U/L (7.0-40); AST/SGOT 23 U/L (<34); BILIRUBIN,TOTAL 0.2 MG/DL (0.3-1.2); BLOOD UREA NITROGEN 12 MG/DL (9-23); CALCIUM LEVEL 11.5 MG/DL (8.5-10.1); CARBON DIOXIDE LEVEL > 40.0 MMOL/L (20-31); CHLORIDE LEVEL 95 MMOL/L (98-107); GLOMERULAR FILTRATION RATE > 60.0 (>60); GLUCOSE, FASTING 118 MG/DL (60-100); MAGNESIUM LEVEL 1.8 MG/DL (1.8-2.4); POTASSIUM SERUM 3.8 MMOL/L (3.5-5.1); SODIUM LEVEL 146 MMOL/L (136-145); TOTAL PROTEIN 6.2 G/DL (5.7-8.2)
[2024-04-16] MEDS ORDERED: NS (Normal Saline) 0.9% 1,000 ML IV SCH (11:15)
[2024-04-16 12:41] LABS: TOTAL 25(OH) VITAMIN D 28.1 NG/ML (20.0-100.0)
[2024-04-16 14:22] LABS: PTH INTACT 108.7 PG/ML (18.5-88.0)
[2024-04-16] MEDS: D5W/0.2% SODIUM CHLORIDE 1,000 ML IV SCH (15:57)
[2024-04-16] MEDS: VANICREAM MOISTURIZING SKIN CREAM 113GM TUBE TOP SCH (15:57)
[2024-04-16] MEDS: POLYVINYL ALCOHOL OPHTH SOLN 15ML (LIQUITEARS) OU PRN (19:22)
[2024-04-17] VITALS (12 sets, daily range): BP systolic 97–143; BP diastolic 53–89; TEMP 97.4–98.4; O2SAT 88–99
[2024-04-17 04:51] LABS: HEMATOCRIT 32.9 % (42.0-52.0); HEMOGLOBIN 9.6 g/dl (13.5-17.5); MEAN CORPUSCULAR HEMOGLOBIN 29.6 pg (27.0-33.0); MEAN CORPUSCULAR HGB CONC 29.2 g/dl (32.0-36.5); MEAN CORPUSCULAR VOLUME 101.5 fl (80.0-96.0); PLATELET COUNT, AUTOMATED 181 10^3/uL (150-450); RED BLOOD COUNT 3.24 10^6/uL (4.30-6.10); WHITE BLOOD COUNT 5.1 10^3/uL (4.0-10.0)
[2024-04-17 05:30] LABS: ALBUMIN 2.5 G/DL (3.2-5.2); ALKALINE PHOSPHATASE 81 U/L (40-129); ALT/SGPT 20 U/L (7.0-40); AST/SGOT 17 U/L (<34); BILIRUBIN,TOTAL 0.2 MG/DL (0.3-1.2); BLOOD UREA NITROGEN 9 MG/DL (9-23); CALCIUM LEVEL 8.6 MG/DL (8.5-10.1); CARBON DIOXIDE LEVEL > 40.0 MMOL/L (20-31); CHLORIDE LEVEL 91 MMOL/L (98-107); CREATININE FOR GFR 0.37 MG/DL (0.70-1.30); GLOMERULAR FILTRATION RATE > 60.0 (>60); GLUCOSE, FASTING 111 MG/DL (60-100); POTASSIUM SERUM 3.5 MMOL/L (3.5-5.1); SODIUM LEVEL 142 MMOL/L (136-145); TOTAL PROTEIN 5.5 G/DL (5.7-8.2)
[2024-04-17] MEDS: PANTOPRAZOLE 40MG TAB (PROTONIX) PO SCH (08:45)
[2024-04-17 11:43] LABS: PROCALCITONIN 0.12 ng/ml
[2024-04-18] VITALS (30 sets, daily range): BP systolic 125–146; BP diastolic 67–94; TEMP 97.2–98.3; O2SAT 86–99
[2024-04-18 06:25] LABS: HEMOGLOBIN 11.1 g/dl (13.5-17.5); MEAN CORPUSCULAR HEMOGLOBIN 29.2 pg (27.0-33.0); MEAN CORPUSCULAR HGB CONC 29.2 g/dl (32.0-36.5); PLATELET COUNT, AUTOMATED 213 10^3/uL (150-450); WHITE BLOOD COUNT 5.6 10^3/uL (4.0-10.0)
[2024-04-18 07:00] LABS: ALBUMIN 2.9 G/DL (3.2-5.2); ALKALINE PHOSPHATASE 86 U/L (40-129); ALT/SGPT 24 U/L (7.0-40); AST/SGOT 20 U/L (<34); BILIRUBIN,TOTAL 0.2 MG/DL (0.3-1.2); BLOOD UREA NITROGEN 11 MG/DL (9-23); CALCIUM LEVEL 9.6 MG/DL (8.5-10.1); CARBON DIOXIDE LEVEL > 40.0 MMOL/L (20-31); CHLORIDE LEVEL 93 MMOL/L (98-107); CREATININE FOR GFR 0.37 MG/DL (0.70-1.30); GLOMERULAR FILTRATION RATE > 60.0 (>60); GLUCOSE, FASTING 98 MG/DL (60-100); POTASSIUM SERUM 4.4 MMOL/L (3.5-5.1); SODIUM LEVEL 145 MMOL/L (136-145); TOTAL PROTEIN 6.3 G/DL (5.7-8.2)
[2024-04-18 11:11] LABS: PHOSPHORUS LEVEL 3.2 MG/DL (2.5-4.9)
[2024-04-19 03:20] VITALS: BP 119/69; TEMP 97.3; O2SAT 96
[2024-04-19 06:42] LABS: HEMOGLOBIN 10.8 g/dl (13.5-17.5); MEAN CORPUSCULAR HEMOGLOBIN 29.4 pg (27.0-33.0); MEAN CORPUSCULAR HGB CONC 29.2 g/dl (32.0-36.5); MEAN CORPUSCULAR VOLUME 100.8 fl (80.0-96.0); PLATELET COUNT, AUTOMATED 236 10^3/uL (150-450); RED BLOOD COUNT 3.67 10^6/uL (4.30-6.10); WHITE BLOOD COUNT 5.6 10^3/uL (4.0-10.0)
[2024-04-19 07:31] LABS: ALBUMIN 3.1 G/DL (3.2-5.2); ALKALINE PHOSPHATASE 84 U/L (40-129); ALT/SGPT 25 U/L (7.0-40); AST/SGOT 26 U/L (<34); BILIRUBIN,TOTAL 0.3 MG/DL (0.3-1.2); BLOOD UREA NITROGEN 9 MG/DL (9-23); CALCIUM LEVEL 9.8 MG/DL (8.5-10.1); CARBON DIOXIDE LEVEL > 40.0 MMOL/L (20-31); CHLORIDE LEVEL 91 MMOL/L (98-107); CREATININE FOR GFR 0.37 MG/DL (0.70-1.30); GLOMERULAR FILTRATION RATE > 60.0 (>60); GLUCOSE, FASTING 107 MG/DL (60-100); SODIUM LEVEL 144 MMOL/L (136-145); TOTAL PROTEIN 6.5 G/DL (5.7-8.2)
[2024-04-19 08:10] VITALS: O2SAT 93
[2024-04-19] MEDS ORDERED: ONDANSETRON 4MG ORAL DISINTEGRATING TAB PO PRN (12:20)
[2024-04-19] MEDS ORDERED: ATROPINE SULFATE 1% OPHTH SOLN 2ML BTL SL PRN (12:20)
[2024-04-19] MEDS: MORPHINE 10MG/0.5ML ORAL CONCENTRATE SOLUTION U/D SL SCH (13:16)
[2024-04-19 20:22] VITALS: BP 137/81; TEMP 98.2; O2SAT 97
[2024-04-19] MEDS: LORazepam 1 MG TAB PO SCH (21:14)
[2024-04-19] MEDS: MORPHINE 10MG/0.5ML ORAL CONCENTRATE SOLUTION U/D SL PRN (23:26)
[2024-04-20 00:38] VITALS: BP 124/59; TEMP 97; O2SAT 95
[2024-04-20 07:28] VITALS: BP 112/67; TEMP 97.5; O2SAT 99
[2024-04-20] MEDS: IPRATROPIUM 0.5MG/ALBUTEROL 2.5MG INH SOL UD 3ML (DUONEB) NEB PRN (12:08)
[2024-04-20] MEDS ORDERED: diphenhydrAMINE 50MG/ML VIAL IV ONE (13:45)
[2024-04-20] MEDS: diphenhydrAMINE 50MG/ML VIAL IM ONE (14:25)
[2024-04-20] MEDS: HYOSCYAMINE SULFATE 0.125 MG SUBL TABLET PO PRN (17:29)
[2024-04-21 07:45] VITALS: O2SAT 93
[2024-04-21] MEDS: LORazepam 1 MG TAB PO PRN ×2 (09:06→17:25)
[2024-04-21] MEDS: MORPHINE 10MG/0.5ML ORAL CONCENTRATE SOLUTION U/D SL SCH (12:01)
[2024-04-21] MEDS: LORazepam 1 MG TAB PO SCH (12:01)
[2024-04-21] MEDS: diphenhydrAMINE 50MG/ML VIAL IM PRN (13:09)
[2024-04-21] MEDS: MORPHINE 10MG/0.5ML ORAL CONCENTRATE SOLUTION U/D SL PRN (15:30)
[2024-04-22] MEDS: SCOPOLAMINE 1MG TRANSDERMAL PATCH TOP SCH (13:30)
== END 2024-04-22 14:25 | disposition expired | DRG 133 ==
LOC: EDBD 12:38 → M ED 12:38 → M ED INP 17:27 → M ICU 18:20 → M PCU 04-17 15:37 → M MSPAV 04-20 21:55
PROVIDERS: ADMIT Internal Medicine Pulmonary Disease; ATTEND Internal Medicine Nephrology
PROC: 5A1945Z Respiratory Ventilation, 24-96 Consecutive Hours (ICD-10-PCS; principal; 2024-04-12)
PROC: 0BH17EZ Insertion of Endotracheal Airway into Trachea, Via Natural or Artificial Opening (ICD-10-PCS; 2024-04-12)
DX: J96.22 Acute and chronic respiratory failure with hypercapnia (principal); G93.41 Metabolic encephalopathy; G93.1 Anoxic brain damage, not elsewhere classified; E43 Unspecified severe protein-calorie malnutrition; R64 Cachexia; J43.9 Emphysema, unspecified; J44.1 Chronic obstructive pulmonary disease with (acute) exacerbation; E88.01 Alpha-1-antitrypsin deficiency; E87.0 Hyperosmolality and hypernatremia; E87.20 Acidosis, unspecified; Z99.81 Dependence on supplemental oxygen; E83.39 Other disorders of phosphorus metabolism; E83.52 Hypercalcemia; E83.42 Hypomagnesemia; Z51.5 Encounter for palliative care; Z66 Do not resuscitate; F32.A Depression, unspecified; I49.8 Other specified cardiac arrhythmias; F41.9 Anxiety disorder, unspecified; F79 Unspecified intellectual disabilities; G40.89 Other seizures; R00.8 Other abnormalities of heart beat; J98.11 Atelectasis; Z68.1 Body mass index [BMI] 19.9 or less, adult; Z87.891 Personal history of nicotine dependence; Z79.899 Other long term (current) drug therapy; Z88.1 Allergy status to other antibiotic agents; Z91.198 Patient's noncompliance with other medical treatment and regimen for other reason; J96.21 Acute and chronic respiratory failure with hypoxia; Z91.199 Patient's noncompliance with other medical treatment and regimen due to unspecified reason